=== PATIENT | female | born 1955 | race Caucasian/White ===

== ENCOUNTER 2025-01-24 13:58 | Outpatient (CLI) | payer MEDICARE, OTHER, SELFPAY ==
--- OUTSIDE RECORDS SUMMARY | 2024-11-28 08:30 | XMS_ITS | Encounter Summary ---
Author Organization [facility] Address [address] [place] [address] Care Team Providers Care Archives Director Name Role Phone Kia Ha MD Primary Care Provider [phone] Reason for Referral * Consultation (Routine) - Closed Specialty Diagnoses / Procedures Referred By Pili ricardo Referred To Contact Cardiology Diagnoses Palpitations PAC (premature atrial contraction) Procedures [place] OFFICE/OUTPATIENT NEW MODERATE MDM 45 MINUTES Jesus Nesbitt APRN [address] [place] [address] Phone: tel: fax: Vivian Humphrey MD [address] [facility] [address] [place] [address] Phone: tel: fax: Referral ID Status Reason Start Date Expiration Date V isits Requested Visits Authorized [id number] Closed Specialty Services Required 11/28/2024 02/27/2026 1 1 Scheduling Instructions Please schedule 3-4 weeks. * Diagnostic Imaging (Routine) - Closed Specialty Diagnoses / Procedures Referred By Pili ricardo Referred To Contact Diagnoses Palpitations PAC (premature atrial contraction) Shortness of breath Procedures Adult Transthoracic Echo Complete W/ Cont if Necessary Per Protocol Jesus Nesbitt APRN [address] [place] [address] Phone: tel: fax: Referral ID Status Reason Start Date Expiration Date Visits Re quested Visits Authorized [id number] Closed 11/28/2024 02/27/2026 1 1 Reason for Visit * Reason Comments Palpitations Monitor results Encounter Details Date Type Department Care Team (Late st Contact Info) Description 11/28/2024 8:30 AM EDT Office Visit [facility] CARDIOLOGY [address] [facility] [address] [place] [phone] Jesus Nesbitt APRN [address] [facility] [address] [place] [address] Palpitations (Primary Dx); PAC (premature atrial contraction); [...] 69 y.o. female with HTN presents to [facility] Heart and Valve Atrial Fibrillation/arrhythmia clinic for Palpitations (Monitor results). Since previous evaluation patient completed cardiac catheterization technologist with diagnostic time approximately 14 days. hospital monitor with no atrial fibrillation/flutter, AVB/pause, VT. Short [...] Previous evaluation: Patient was recently evaluated at [facility] emergency department for complaints of irregular heart rate, PVC on ambulatory ECG monitor. Emergency department work-up revealed normal troponin/BNP, CXR with no acute cardiopulmonary findings, and ECGs with no evidence of arrhythmia/acuteischemia. Patient was instructed to follow-up at [facility] heart and valve center for further [...] Media :23} 1. Palpitations -Recently evaluated at [facility] emergency department for complaints of irregular heart rate, PVC on ambulatory ECG monitor. Pronounced symptoms at time of ED evaluation after isolatedincreased alcohol intake. -hospital monitor with diagnostic time approximately 14 days. hospital monitor with no atrial fibrillation/flutter, AVB/pause, VT. Short [...] PACs and palpitations -Discussed AF monitoring with [facility] -Referral to cardiology for surveillance 2. Essential [...] questions, concerns, or worsening symptoms. Dictated Utilizing [employer] Dictation Please note that portions of this note were completed with a voice recognition program. Part of this note may be an electronic physician extender/translation of spoken language to printed text using the [employer] Dictation System. documented in this encounter Plan of Treatment Upcoming Encounters Date Type Department Care Team (Late st Contact Info) Description 02/23/2025 1:00 PM EDT Appointment [facility] [address] [place] [address] 01/09/2026 10:30 AM EDT Office Visit [facility] [address] [facility] [address] [place] [phone] Gianni Delgado III, MD [address] [facility] [address] [place] [address] Scheduled Referrals Name Type Priority Associated Diagnoses [...] breath documented in this encounter Care Teams Archives Director Relationship Specialty Start Date End Date Kia Ha MD [address] [place] [address] PCP - General 02/13/15 documented as of this encounter
--- OUTSIDE RECORDS SUMMARY | 2024-11-29 10:42 | XMS_ITS | Encounter Summary ---
Author Organization [facility] Address [address] [place] [address] Care Team Providers Care Attendant Sales Name Role Phone Kia Ha MD Primary Care Provider [phone] Reason for Referral * Diagnostic Imaging (Routine) - Closed Specialty Diagnoses / Procedures Referred By Contac t Referred To Contact Diagnoses Palpitations PAC (premature atrial contraction) Shortness of breath Procedures Adult Transthoracic Echo Complete W/ Cont if Necessary Per Protocol Jesus Nesbitt APRN [address] [place] [address] Phone: tel: fax: Referral ID Status Reason [...] Necessary Per Protocol Jesus Nesbitt APRN [address] [place] [id number] Phone: tel: fax: Referral ID Status Reason Start Date Expiration Date Visits Re quested Visits Authorized Closed 11/28/2024 02/27/2026 1 1 Encounter Details Date Type Department Care Team (Late st Contact Info) Description 11/29/2024 10:42 AM EDT - 11/29/2024 11:59 PM EDT Hospital Encounter [facility]VASIVE [facility] [place] [address] [place] [address] Jesus Nesbitt, MARGARITO [address] [place] [address] Palpitations; PAC (premature atrial contraction); [...] Info) Description 02/23/2025 1:00 PM EDT Appointment [facility] [address] [place] [address] 01/09/2026 10:30 AM EDT Office [facility] [address] [place] [address] Gianni Delgado III, MD [address] [place] [address] documented as of this encounter Procedures Procedure [...] breath documented in this encounter Care Teams Attendant Sales Relationship Specialty Start Date End Date Kia Ha MD [address] [place] [address] PCP - General 02/13/15 documented as of this encounter
--- OUTSIDE RECORDS SUMMARY | 2025-01-08 11:00 | XMS_ITS | Encounter Summary ---
Author Organization [facility] Address [address] [place] [address] Care Team Providers Care Human Performance Technologist Name Role Phone Kia Ha MD Primary Care Provider [phone] Reason for Visit * Reason Comments Establish Care Palpitations * Consultation (Routine) - Closed Specialty Diagnoses / Procedures Referred By Contac t Referred To Contact Cardiology Diagnoses Palpitations PAC (premature atrial contraction) Procedures [place] OFFICE/OUTPATIENT NEW MODERATE MDM 45 MINUTES Jesus Nesbitt, MARGARITO [address] [place] [address] Phone: tel: fax: Vivian Humphrey MD [address] [facility] [address] [place] [address] Phone: tel: fax: Referral ID Status Reason Start Date Expiration Date V isits Requested Visits Authorized [id number] Closed Specialty Services Required 11/28/2024 02/27/2026 1 1 Encounter Details Date Type Department Care Team (Late st Contact Info) Description 01/08/2025 11:00 AM EDT Office Visit [facility] [address] [place] [address] Gianni Delgado III, MD [address] [place] [address] Premature atrial complexes (Primary Dx) Social History Tobacco Use Types Packs/Day Years Used Date Smoking Tobacco: Never Passive Smoke Exposure: Never Smokeless Tobacco: Never Tobacco Cessation:Counseling Given: Not Answered Alcohol Use Standard Drinks/Week Comments Yes 2 (1 standard drink = 0.6 oz pur e alcohol) Sometimes wine Abuse Screen Answer Date Recorded Feels Unsafe [...] Sign Reading Time Taken Comments Blood Pressure 140/72 01/08/2025 10:55 AM EDT Pulse 58 01/08/2025 10:55 AM EDT Temperature - - Respiratory Rate - - Oxygen Saturation 97% 01/08/2025 10:55 AM EDT Inhaled Oxygen Concentration - - Weight 71.8 kg (158 lb 3.2 oz) 01/08/2025 10:55 AM EDT Height 163.8 cm (5' 4.5 ) 01/08/2025 10:55 AM ED T Body Mass Index 26.74 01/08/2025 10:55 AM EDT documented in this encounter Progress Notes * Gianni Delgado III, MD - 01/08/2025 11:00 AM EDT [facility] Cardiology Office visit Aris Reddy 1955 There is no work phone number on file. VISIT DATE: 01/08/2025 PCP: Kia Ha MD [address] [address] CC: Chief Complaint Patient presents with Establish Care Palpitations Previous cardiac studies and procedures: November 2024 TTE Left ventricular systolic function is normal. Calculated left ventricular EF = 62.8% Left ventricular ejection fraction appears to be 61 - 65%. Left ventricular diastolic function was normal. Estimated right ventricular systolic pressure from tricuspid regurgitation is normal (<35 mmHg).Calculated right ventricular systolic pressure from tricuspid regurgitation is 26 mmHg. 14-day Holter Frequent PACs with 10% burden Average heart rate 67 bpm Short episodes of SVT with the longest lasting 10 beats ASSESSMENT: Diagnosis Plan 1. Premature atrial complexes PLAN: Premature atrial contractions, short episodes of nonsustained atrial tachycardia: Continue regular exercise. Discussed avoidance of triggers. Will continue to trend arrhythmia via [employer] mobile device at home. Continue low-dose beta-blockade. Not recommending antiarrhythmic therapy at this time. Subjective Intermittent nocturnal palpitations after alcohol. She seems to be sensitive to the effects of alcohol, drinking in moderation, no more than 1-2 standard drinks in a sitting, approximately once per week. Exercising on a regular basis without difficulty. Blood pressures running less than 130/80 mmHg. No sustained palpitations. PHYSICAL EXAMINATION: Vitals: 01/08/25 1055 BP: 140/72 BP Location: Left arm Patient Position: Sitting Cuff Size: Adult Pulse: 58 SpO2: 97% Weight: 71.8 kg (158 lb 3.2 oz) Height: 163.8 cm (64.5 ) General Appearance: Alert, cooperative, no distress, appears stated age Lungs: Clear to auscultation bilaterally, respirations unlabored Chest Wall: No tenderness or deformity Heart: Regular rate and rhythm, S1 and S2 normal, no murmur, rub or gallop, normal carotid impulse bilaterally without bruit. Extremities: Extremities normal, atraumatic, no cyanosis or edema Pulses: 2+ and symmetric all extremities Skin: Skin color, texture, turgor normal, no rashes or lesions Diagnostic Data: Procedures No results found for: CHLPL , TRIG , HDL , LDLDIRECT Lab Results Component Value Date GLUCOSE 122 (H) 10/26/2024 BUN 13.6 10/26/2024 CREATININE 0.59 10/26/2024 NA 137 10/26/2024 K 4.0 10/26/2024 CL 102 10/26/2024 CO2 24.6 10/26/2024 No results found for: HGBA1C Lab Results Component Value Date WBC 6.81 10/26/2024 HGB 13.7 10/26/2024 HCT 41.7 10/26/2024 PLT 182 10/26/2024 Allergies Allergies Allergen Reactions Imipramine Rash Sulfa Antibiotics Rash Current Medications Current Outpatient Medications: amLODIPine (NORVASC) 5 MG tablet, Take 1 tablet by mouth Daily., Disp: , Rfl: Biotin 5000 MCG tablet, Take by mouth., Disp: , Rfl: Cholecalciferol (Vitamin D-3) 25 MCG (1000 UT) capsule, Take by mouth., Disp: , Rfl: Coenzyme Q10 (CoQ-10) 100 MG capsule, Take 1 capsule by mouth Daily., Disp: , Rfl: docusate sodium (COLACE) 100 MG capsule, Take 2 capsules by mouth every night at bedtime., Disp: , Rfl: lansoprazole (PREVACID) 15 MG capsule, Take 1 capsule by mouth Daily., Disp: , Rfl: Magnesium 200 MG tablet, Take 1 tablet by mouth Daily., Disp: , Rfl: Melatonin 10 MG capsule, Take 1 capsule by mouth every night at bedtime., Disp: , Rfl: metoprolol succinate XL (TOPROL-XL) 25 MG 24 hr tablet, Take 1 tablet by mouth Every Night., Disp: 90 tablet, Rfl: 1 rosuvastatin (CRESTOR) 40 MG tablet, Take 1 tablet by mouth every night at bedtime., Disp: , Rfl: traZODone (DESYREL) 50 MG tablet, Take 1 tablet by mouth Every Night. (Patient taking differently: Take 1 tablet by mouth As Needed for Sleep.), Disp: , Rfl: ROS ROS SOCIAL HX Social History Socioeconomic History Marital status: Tobacco Use Smoking status: Never Passive exposure: Never Smokeless tobacco: Never Vaping Use Vaping status: Never Used Substance and Sexual Activity Alcohol use: Yes Alcohol/week: 2.0 standard drinks of alcohol Types: 2 Drinks containing 0.5 oz of alcohol per week Comment: Sometimes wine Drug use: Never Sexual activity: Yes Partners: Male control/protection: None, Tubal ligation FAMILY HX Family History Problem Relation Age of Onset Cancer Mother PANCREATIC Broken bones Mother Arrhythmia Mother Atrial fibrillation Hyperlipidemia Mother Hypertension Mother Hyperlipidemia Father Hyperlipidemia Sister Breast cancer Maternal Aunt DX AGE 60'S Heart attack Paternal Grandmother Hyperlipidemia Sister Ovarian cancer Neg Hx Gianni Delgado III, MD, FAC documented in this encounter Plan of Treatment Upcoming Encounters Date Type Department Care Team (Late st Contact Info) Description 02/23/2025 1:00 PM EDT Appointment [facility] [address] [place] [address] 01/09/2026 10:30 AM EDT Office Visit [facility] [address] [place] [address] Gianni Delgado III, MD [address] [facility] [address] [facility] [address] [place] [address] Scheduled Referrals Name Type Priority Associated Diagnoses Order Schedule Ambulatory Referral to Cardiology for Arrythmia, Other; Frequent PACs. Outpatient Referral Routine Palpitations PAC (premature atrial contraction) Ordered: 11/28/2024 documented as of this encounter Visit Diagnoses Diagnosis Premature atrial complexes- Primary Supraventricular premature beats documented in this encounter Care Teams Human Performance Technologist Relationship Specialty Start Date End Date Kia Ha MD [address] [facility] [address] [place] [address] PCP - General 02/13/15 documented as of this encounter
--- OUTSIDE RECORDS SUMMARY | 2025-01-17 12:31 | XMS_ITS | Encounter Summary ---
Author Organization [facility] Address [address] [place] [address] Care Team Providers Care Senior Financial Reporting Accountant Name Role Phone Kia Ha MD Primary Care Provider [phone] Reason for Referral * Cardiac Stress Testing (Routine) - Closed Specialty Diagnoses / Procedures Referred By Pili ricardo Referred To Contact Diagnoses Precordial pain Procedures Treadmill Stress Test Gianni Delgado III, MD [address] [place] [address] Phone: tel: fax: Referral ID Status Reason Start Date Expiration Date Visits Re quested Visits Authorized [id number] Closed 01/10/2025 04/11/2026 1 1 Reason for Visit * Cardiac Stress Testing (Routine) - Closed Specialty Diagnoses / Procedures Referred By Pili ricardo Referred To Contact Diagnoses Precordial pain Procedures Treadmill Stress Test Gianni Delgado III, MD [address] [place] [address] Phone: tel: fax: Referral ID Status Reason Start Date Expiration Date Visits Re quested Visits Authorized Closed 01/10/2025 04/11/2026 1 1 Encounter Details Date Type Department Care Team (Late st Contact Info) Description 01/17/2025 12:31 PM EDT - 01/17/2025 11:59 PM EDT Hospital Encounter [facility] C[facility]ULAR LAB [address] [place] [address] Gianni Delgado III, MD [address] [place] [address] Precordial pain Discharge Disposition: Home or Self Care Social [...] Physical Signs of Abuse Present no 10/26/2024 PHQ-2 Answer Date Recorded Patient Health Questionnaire-9 Score 0 01/16/2025 Comments No Sex and Gender Information Value Date Recorded Sex Assigned at Not on file Legal Sex Female 10:55 AM EDT Gender Identity Not on file Sexual Orientation Not on file documented as of this encounter Last Filed Vital Signs Vital Sign Reading Time Taken Comments Blood Pressure 152/90 01/17/2025 1:10 PM EDT Pulse 81 01/17/2025 1:10 PM EDT Temperature - - Respiratory Rate - - Oxygen Saturation - - Inhaled Oxygen Concentration - - Weight 71.8 kg (158 lb 4.6 oz) 01/17/2025 1:10 P M EDT Height 163.8 cm (5' 4.49 ) 01/17/2025 1:10 PM ED T Body Mass Index 26.76 01/17/2025 1:10 PM EDT documented in this encounter Medications at [...] capsules by mouth every night at bedtime. lansoprazole (PREVACID) 15 MG capsule Take 1 capsule by mouth Daily. Magnesium 200 MG tablet Take 1 tablet by mouth Daily. Melatonin 10 MG capsule Take 1 capsule by mouth every night at bedtime. metoprolol succinate XL (TOPROL-XL) 25 MG 24 hr tabletIndications :Palpitations,PAC (premature atrial contraction) Take 1 tablet by mouth Every Night. 90 tablet 1 11/28/2024 traZODone (DESYREL) 50 MG tablet Take 1 tablet by mouth Every Night. 08/04/2024 documented as of this encounter Plan of Treatment Upcoming Encounters Date Type Department Care Team (Late st Contact Info) Description 02/23/2025 1:00 PM EDT Appointment [facility] [address] [place] [address] 01/09/2026 10:30 AM EDT Office Visit [facility] [address] [facility] [address] [place] [address] Gianni Delgado III, MD [address] [facility] [address] [place] [address] documented as of this encounter Procedures Procedure Name Priority Date/Time Associated Diagnosis Comments STRESS TEST ONLY, EXERCISE Routine 01/17/2025 1:22 PM EDT Precordial pain documented in this encounter Results * STRESS TEST ONLY, EXERCISE (01/17/2025 1:22 PM EDT) Target HR (85%) 130 bpm Max. Pred. HR (100%) 153 bpm BH CV STRESS PROTOCOL 1 Burt Stage 1 1.0 HR Stage 1 133 BP Stage 1 176/86 O2 Stage 1 100 Duration Min Stage 1 3 Duration Sec Stage 1 0 Grade Stage 1 10 Speed Stage 1 1.7 BH CV STRESS METS STAGE 1 5.0 Stage 2 2.0 HR Stage 2 131 BP Stage 2 188/86 O2 Stage 2 98 Duration Min Stage 2 3 Duration Sec Stage 2 0 Grade Stage 2 12 Speed Stage 2 2.5 BH CV STRESS METS STAGE 2 7.5 Stage 3 3.0 HR Stage 3 139 O2 Stage 3 99 Duration Min Stage 3 1 Duration Sec Stage 3 11 Grade Stage 3 14 Speed Stage 3 3.4 BH CV STRESS METS STAGE 3 10.0 Baseline HR 81 bpm Baseline BP 152/90 mmHg O2 sat rest 100 % Peak HR 141 bpm Peak BP 196/90 mmHg O2 sat peak 99 % Recovery HR 82 bpm Recovery BP 144/84 mmHg Recovery O2 99 % Percent Max Pred HR 92.16 % Exercise duration (min) 7 min Exercise duration (sec) 11 sec Estimated workload 8.8 METS Percent Target HR 108 % Anatomical Region Laterality Modality Other Narrative 01/17/2025 2:00 PM EDT Patient denied any chest discomfort/pain, or any other symptoms during exercise. Expected exercise duration 5:55, actual 7:11. No ECG evidence of myocardial ischemia. Findings consistent with a normal ECG stress test. Stress Findings No ECG evidence of myocardial ischemia. Findings consistent with a normal ECG stress test. Rest ECG Baseline ECG of normal sinus rhythm noted at rest. PACs noted. There was no ST segment deviation noted. Stress ECG Stress ECG rhythm of sinus tachycardia noted. There was no ST segment deviation noted during stress. Arrhythmias during stress: occasional PACs, occasional PVCs. Stress ECG was interpretable and is consistent with a normal stress ECG. Stress Description A stress test was performed following the Burt protocol. The patient achieved the target heart rate. The patient requested the test to be stopped because the patient experienced fatigue. The clinician observed no symptoms during the stress test. The patient experienced no angina during the stress test. The Felipe Treadmill Score of 5.7 is consistent with a Low risk for ischemic heart disease. Blood pressure demonstrated a normal response to stress. Heart rate demonstrated a normal response to stress. Overall, the patient's exercise capacity was normal. Recovery ECG During recovery, the patient complained of no significant symptoms following stress. Sinus rhythm was noted during recovery. Arrhythmias during recovery: occasional PAC's. Test Chemical Worker ECG Hope Gianni Delgado III, MD CV STRESS ORDERABLES Final Result documented in this encounter Visit Diagnoses Diagnosis Precordial pain documented in this encounter Care Teams Senior Financial Reporting Accountant Relationship Specialty Start Date End Date Kia Ha MD [address] [place] [address] PCP - General 02/13/15 documented as of this encounter
--- OUTSIDE RECORDS SUMMARY | 2025-01-24 14:02 | XMS_ITS | Encounter Summary ---
Author Organization [facility] Address [address] [place] [address] Care Team Providers Care Arboreal Scientist Name Role Phone Kia Ha MD Primary Care Provider Encounter Details Date Type Department Care Team (Late st Contact Info) Description 01/17/2025 Results Follow-Up [facility] CARDIOLOGY [address] [facility] [address] [place] [address] Gianni Delgado III, MD [address] [facility] [address] [place] [address] Social History Tobacco Use Types Packs/Day Years [...] on file documented as of this encounter Plan of Treatment Upcoming Encounters Date Type Department Care Team (Late st Contact Info) Description 02/23/2025 1:00 PM EDT Appointment [facility] [address] [place] [address] 01/09/2026 10:30 AM EDT Office Visit [facility] [address] [facility] [address] [place] [address] Gianni Delgado III, MD [address] [facility] [address] [place] [address] documented as of this encounter Visit Diagnoses Not on filedocumented in this encounter Care Teams Arboreal Scientist Relationship Specialty Start Date End Date Kia Ha MD [address] [facility] [address] [place] [address] PCP - General 02/13/15 documented as of this encounter
--- OUTSIDE RECORDS SUMMARY | 2025-01-24 14:02 | XMS_ITS | Encounter Summary ---
Author Organization [facility] Address [address] [place] [address] Care Team Providers Care Nurse Companion Name Role Phone Kia Ha MD Primary Care Provider [phone] Encounter Details Date Type Department Care Team (Latest Contact Info) Description 01/08/2025 Travel Social History Tobacco Use Types Packs/Day Years [...] Info) Description 02/23/2025 1:00 PM EDT Appointment [facility] [address] [place] [address] 01/09/2026 10:30 AM EDT Office Visit [facility] C[facility] [address] [place] [address] Gianni Delgado III, MD [address] [place] [address] documented as of this encounter Visit Diagnoses Not on filedocumented in this encounter Care Teams Nurse Companion Relationship Specialty Start Date End Date Kia Ha MD [address] [facility] [address] [place] [address] PCP - General 02/13/15 documented as of this encounter
--- OUTSIDE RECORDS SUMMARY | 2025-01-24 14:02 | XMS_ITS | Encounter Summary ---
Author Organization [facility] Address [address] [place] [address] Care Team Providers Care Stoker Installation Mechanic Name Role Phone Kia Ha MD Primary Care Provider [phone] Reason for Referral * Consultation (Routine) - Pending Review Specialty Diagnoses / Procedures Referred By Contact Referred To Contact Gastroenterology Diagnoses Dyspepsia Procedures OK OFFICE/OUTPATIENT NEW MODERATE MDM 45 MINUTES Gianni Delgado III, MD [address] [place] [address] Phone: tel: fax: Roe Dunham MD [address] [facility] [address] [place] [address] Phone: tel: fax: Referral ID Status Reason Start Date Expiration Date Visits Requested Visits Authorized Pending Review Specialty Services Required 01/10/2025 04/11/2026 1 1 * Cardiac Stress Testing (Routine) - Closed Specialty Diagnoses / Procedures Referred By Contac t Referred To Contact Diagnoses Precordial pain Procedures Treadmill Stress Test Gianni Delgado III, MD [address] [place] [address] Phone: tel: fax: Referral ID Status Reason Start Date Expiration Date Visits Re quested Visits Authorized Closed 01/10/2025 04/11/2026 1 1 Encounter Details Date Type Department Care Team (Late st Contact Info) Description 01/10/2025 Telephone [facility] [address] [place] [address] Gianni Delgado III, MD [address] [place] [address] Social History Tobacco Use Types Packs/Day Years [...] on file documented as of this encounter Miscellaneous Notes * Telephone Encounter - Julissa Gonzalez RN - 01/10/2025 8:19 AM EDT Per Exercise treadmill test. Diagnosis precordial pain. Consult GI, dyspepsia. Message sent via [employer]. documented in this encounter Plan of Treatment Upcoming Encounters Date Type Department Care Team (Late st Contact Info) Description 02/23/2025 1:00 PM EDT Appointment [facility] [address] [place] [address] 01/09/2026 10:30 AM EDT Office Visit [facility] [address] [place] [address] Gianni Delgado III, MD [address] [place] [address] Scheduled Referrals Name Type Priority Associated Diagnoses Order Schedule Ambulatory Referral to Gastroenterology Outpatient Referral Routine Dyspepsia Ordered: 01/10/2025 documented as of this encounter Results * STRESS TEST ONLY, [...] recovery. Arrhythmias during recovery: occasional PAC's. Test [employer] [facility] [employer] us Gianni Delgado III, MD CV STRESS ORDERABLES Final Result documented in this encounter Visit Diagnoses Diagnosis Precordial pain- Primary Dyspepsia Dyspepsia and other specified disorders of function of stomach Precordial pain documented in this encounter Care Teams Stoker Installation Mechanic Relationship Specialty Start Date End Date Kia Ha MD [address] [place] [address] PCP - General 02/13/15 documented as of this encounter
--- OUTSIDE RECORDS SUMMARY | 2025-01-24 14:02 | XMS_ITS | Encounter Summary ---
Author Organization [facility] Address [address] [place] [address] Care Team Providers Care Industrial Analyst Name Role Phone Kia Ha MD Primary Care Provider [phone] Encounter Details Date Type Department Care Team (Latest Contact Info) Description 01/17/2025 Travel Social History Tobacco Use Types Packs/Day [...] Info) Description 02/23/2025 1:00 PM EDT Appointment [facility] [address] [place] [address] 01/09/2026 10:30 AM EDT Office Visit [facility] [address] [place] [phone] Gianni Delgado III, MD [address] [facility] [address] [place] [phone] documented as of this encounter Visit Diagnoses Not on filedocumented in this encounter Care Teams Industrial Analyst Relationship Specialty Start Date End Date Kia Ha MD [address] [facility] [address] [place] [address] PCP - General 02/13/15 documented as of this encounter
--- OUTSIDE RECORDS SUMMARY | 2025-01-24 14:02 | XMS_ITS | Encounter Summary ---
Author Organization [facility] Address [address] [place] [address] Care Team Providers Care Scrubber Operator Name Role Phone Kia aH MD Primary Care Provider [phone] Reason for Visit * Auth/Cert Specialty Diagnoses / Procedures Referred By Pili t Referred To Contact Procedures OPEN REDUCTION INTERNAL FIXATION HUMERUS PROXIMAL Referral ID Status Reason Start Date Expiration Date Visits Re quested Visits Authorized [id number] Encounter Details Date Type Department Care Team (Late st Contact Info) Description 08/15/2024 Hospital Encounter [facility] OR [address] [place] [address] Davey Moran Jr., MD [address] [facility] [address] [place] [address] Social History Tobacco Use Types Packs/Day Years [...] on file documented as of this encounter Functional Status * Over the past 2 weeks, how often have you been bothered by any of the following problems? Question Answer Date of Assessment Author Patient Health Questionnaire-2 Score 0 12/29 11:47 AM EDT Mychart, Generic * Little interest or pleasure in doing things Answer Date of Assessment Author Not at all 01/16/2025 11:47 AM EDT Mychart, Generic * Feeling down, depressed, or hopeless Answer Date of Assessment Author Not at all 01/16/2025 11:47 AM EDT Mychart, Generic * Question Answer Date of Assessment Author Patient Health Questionnaire-9 Score 0 12/29 11:47 AM EDT Mychart, Generic * Trouble falling or staying asleep, or sleeping too much Answer Date of Assessment Author Not at all 01/16/2025 11:47 AM EDT Mychart, Generic * Feeling tired or having little energy Answer Date of Assessment Author Not at all 01/16/2025 11:47 AM EDT Mychart, Generic * Poor appetite or overeating Answer Date of Assessment Author Not at all 01/16/2025 11:47 AM EDT Mychart, Generic * Feeling bad about yourself - or that you are a failure or have let yourself or your family down Answer Date of Assessment Author Not at all 01/16/2025 11:47 AM EDT Mychart, Generic * Trouble concentrating on things, such as reading the newspaper or watching television Answer Date of Assessment Author Not at all 01/16/2025 11:47 AM EDT Mychart, Generic * Moving or speaking so slowly that other people could have noticed? Or the opposite - being so fidgety or restless that you have been moving around a lot more than usual. Answer Date of Assessment Author Not at all 01/16/2025 11:47 AM EDT Mychart, Generic * Thoughts that you would be better off or hurting yourself in some way Answer Date of Assessment Author Not at all 01/16/2025 11:47 AM EDT Mychart, Generic * Calculated C-SSRS Risk Score (Lifetime/Recent) Answer Date of Assessment Author No Risk Indicated 10/26/2024 5:05 AM EDT Margarito Walters RN * [place] Suicide Severity Rating Scale (Screener/Recent Self-Report) Question Answer Date of Assessment Author 1. Wish to be (Past 1 Month) No 025 5:05 AM EDT Margarito Walters RN 2. Non-Specific Active Suici maria Thoughts (Past 1 Month) No 10/26/2024 5:05 AM EDT Pauline Walters RN 6. Suicidal Behavior (Lifetime) No 5:05 AM EDT Margarito Walters RN documented as of this encounter Plan of Treatment Upcoming Encounters Date Type Department Care Team (Late st Contact Info) Description 02/23/2025 1:00 PM EDT Appointment [facility] [address] [place] [address] 01/09/2026 10:30 AM EDT Office Visit [facility] [address] [facility] [address] [place] [address] Gianni Delgado III, MD [address] [facility] [address] [place] [address] documented as of this encounter Visit Diagnoses Not on filedocumented in this encounter Care Teams Scrubber Operator Relationship Specialty Start Date End Date Kia Ha MD [address] [facility] [address] [place] [address] PCP - General 02/13/15 documented as of this encounter
--- OUTSIDE RECORDS SUMMARY | 2025-01-24 14:02 | XMS_ITS | Encounter Summary ---
Author Organization [facility] Address [address] [place] [address] Care Team Providers Care Hvac Sales Engineer Name Role Phone Kia Ha MD Primary Care Provider [phone] Encounter Details Date Type Department Care Team (Late st Contact Info) Description 11/22/2024 Results Follow-Up [facility] [address] [facility] [address] [place] [address] Jesus Nesbitt APRN [address] [facility] [address] [place] [phone] Social History Tobacco Use Types Packs/Day Years [...] Info) Description 02/23/2025 1:00 PM EDT Appointment [facility] [address] [place] [address] 01/09/2026 10:30 AM EDT Office Visit [facility] [address] [facility] [address] [place] [id number] Gianni Delgado III, MD [address] [facility] [address] [place] [phone] documented as of this encounter Visit Diagnoses Not on filedocumented in this encounter Care Teams Hvac Sales Engineer Relationship Specialty Start Date End Date Kia Ha MD [address] [facility] [address] [place], [place] [id number] PCP - General 02/13/15 documented as of this encounter
--- OUTSIDE RECORDS SUMMARY | 2025-01-24 14:02 | XMS_ITS | Encounter Summary ---
Author Organization [facility] Address [address] [place] [address] Care Team Providers Care Auto Glass Worker Name Role Phone Kia Ha MD Primary Care Provider [phone] Reason for Visit * Reason Onset Date Comments Medication Reconciliation 01/05/2025 Encounter Details Date Type Department Care Team (Late st Contact Info) Description 01/05/2025 Telephone [facility] [address] [facility] [address] [place] [address] Gianni Delgado III, MD [address] [facility] [address] [place] [address] Medication Reconciliation Social History Tobacco Use Types Packs/Day Years [...] on file documented as of this encounter Progress Notes * AmadoSuzie Cartagena CMA - 01/05/2025 1:12 PM EDTAddended by: SUZIE LIEBERMAN on: 01/05/2025 01:12 PM Modules accepted: Orders documented in this encounter Miscellaneous Notes * Telephone Encounter - Suzie Raza CMA - 01/05/2025 1:09 PM EDT Medication reconciliation completed with patient. * Telephone Encounter - Suzie Raza CMA - 01/05/2025 11:24 AM EDT LVM requesting call back for medication reconciliation. documented in this encounter Plan of Treatment Upcoming Encounters Date Type Department Care Team (Late st Contact Info) Description 02/23/2025 1:00 PM EDT Appointment [address] [address] 01/09/2026 10:30 AM EDT Office Visit [facility] [address] [facility] [address] [place] [address] Gianni Delgado III, MD [address] [place] [address] documented as of this encounter Visit Diagnoses Not on filedocumented in this encounter Care Teams Auto Glass Worker Relationship Specialty Start Date End Date Kia Ha MD [address] [facility] [address] [place] [address] PCP - General 02/13/15 documented as of this encounter
--- OUTSIDE RECORDS SUMMARY | 2025-01-24 14:02 | XMS_ITS | Clinical Summary ---
Author Organization [facility] Address [address] [place] [address] Care Team Providers Care Clinical Auditor Name Role Phone Kia Ha MD Primary Care Provider [phone] Allergies Active Allergy Reactions Criticality Noted Date Comments Imipramine Rash Low 07/12/2013 Sulfa Antibiotics Rash Low 12/08/2015 Medications rosuvastatin (CRESTOR) 40 MG tablet Take 1 tablet by mouth every night at bedtime. 3 Active Cholecalciferol (Vitamin D-3) 25 MCG (1000 UT) capsule Take by mouth. 4 Active Biotin 5000 MCG tablet Take by mouth. 4 Active amLODIPine (NORVASC) 5 MG tablet Take 1 tablet by mouth Daily. 4 Active traZODone (DESYREL) 50 MG tablet Take 1 tablet by mouth Every Night. 5 Active Magnesium 200 MG tablet Take 1 tablet by mouth Daily. Active docusate sodium (COLACE) 100 MG capsule Take 2 capsules by mouth every night at bedtime. Active Coenzyme Q10 (CoQ-10) 100 MG capsule Take 1 capsule by mouth Daily. Active Melatonin 10 MG capsule Take 1 capsule by mouth every night at bedtime. Active metoprolol succinate XL (TOPROL-XL) 25 MG 24 hr tabletIndicatio ns:Palpitations ,PAC (premature atrial contraction) Take 1 tablet by mouth Every Night. 90 tablet 1 5 Active lansoprazole (PREVACID) 15 MG capsule Take 1 capsule by mouth Daily. Active ascorbic acid (VITAMIN C) 1000 MG tablet Take 1 tablet by mouth Daily. 01/09/20 25 Discontinue d(Historica l Med - Therapy completed) Active Problems Problem Noted Date Diagnosed Date Premature atrial complexes 01/08/2025 Encounters Date Type Department Care Team Description 01/17/2025 12:31 PM EDT - 01/17/2025 11:59 PM EDT Hospital Encounter [facility] [address] [facility] 3rd [place] [address] Gianni Delgado III, MD Precordial pain Discharge Disposition: Home or Self Care 01/17/2025 Results Follow-Up [facility] [address] [facility] [address] [place] [address] Gianni Delgado III, MD 01/17/2025 Travel 01/10/[address] [facility] [address] [facility] [address] [place] [address] Gianni Delgado III, MD 01/08/2025 11:00 AM EDT Office Visit [facility] [address] [facility] [address] [place] [address] Gianni Delgado III, MD Premature atrial complexes (Primary Dx) 01/08/2025 Travel 01/05/[address] [facility] [address] [facility] [address] [place] [address] Gianni Delgado III, MD Medication Reconciliation 11/29/2024 10:42 AM EDT - 11/29/2024 11:59 PM EDT Hospital Encounter [facility] NONINVASIVE LAB [place] [address] [facility] [address] [place] [phone] Jesus Nesbitt APRN Palpitations; PAC (premature atrial contraction); Shortness of breath Discharge Disposition: Home or Self Care 11/29/2024 Results Follow-Up [facility] [address] [facility] [address] [address] [place] [phone] Jesus Nesbitt APRN 11/28/2024 8:30 AM EDT Office [facility] [address] [facility] [address] [place] [address] Jesus Nesbitt APRN Palpitations (Primary Dx); PAC (premature atrial contraction); Shortness of breath 11/28/2024 Travel 11/22/2024 Results Follow-Up [facility] [address] [facility] [address] [place] [address] Jesus Nesbitt APRN 10/30/2024 10:26 AM EDT - 10/30/2024 11:59 PM EDT Hospital Encounter [facility] [address] [facility] [address] [place] [address] Palpitations Discharge Disposition: Home or Self Care 10/30/2024 9:00 AM EDT Office Visit [facility] [address] [facility] [address] [place] [address] Jesus Nesbitt APRN Palpitations (Primary Dx); Essential hypertension 10/30/2024 Travel 10/26/2024 5:06 AM EDT - 10/26/2024 7:15 AM EDT Emergency [facility] EMERGENC[facility] DE[facility] [address] [place] [address] Los Mazariegos MD Palpitations (Primary Dx) Discharge Disposition: Home or Self Care 10/26/2024 Travel from Last 3 Months Immunizations Immunization Administration Dates Next Due COVID-19 (PFIZER) Purple Cap Monovalent 06/25/19 21,06/04/2020 Family History Medical History Relation Name Comments Hyperlipidemia Father Father Breast cancer Maternal Aunt DX AGE 60'S Arrhythmia Mother Atrial fibrilla tion Broken bones Mother Cancer Mother PANCREATIC Hyperlipidemia Mother Hypertension Mother Heart attack Paternal Grandmother Grandmother Hyperlipidemia Sister 1 Sister Hyperlipidemia Sister 2 Destiny Ovarian cancer Neg Hx Relation Name Status Comments Father Father Alive Maternal Aunt Mother Paternal Grandmother Grandmother Alive Sister 1 Sister Alive Sister 2 Destiny Alive Social History Tobacco Use Types Packs/Day Years [...] on file Sexual Orientation Not on file Last Filed Vital Signs Vital Sign Reading Time Taken Comments Blood Pressure 152/90 01/17/2025 1:10 PM EDT Pulse 81 01/17/2025 1:10 PM EDT Temperature 36.5 C (97.7 F) 10/26/2024 5:05 AM EDT Respiratory Rate 18 11/28/2024 8:43 AM EDT Oxygen Saturation 97% 01/08/2025 10:55 AM EDT Inhaled Oxygen Concentration - - Weight 71.8 kg (158 lb 4.6 oz) 01/17/2025 1:10 P M EDT Height 163.8 cm (5' 4.49 ) 01/17/2025 1:10 PM ED T Body Mass Index 26.76 01/17/2025 1:10 PM EDT Plan of Treatment Upcoming Encounters Date Type Department Care Team (Late st Contact Info) Description 02/23/2025 1:00 PM EDT Appointment [facility] [address] [place] [address] 01/09/2026 10:30 AM EDT Office Visit [facility] [address] [place] [address] Gianni Delgado III, MD [address] [place] [address] Health Maintenance Due Date Last Done Comments COLOGUARD 2002 COLON CANCER SCREENING 5 YEA R SIGMOIDOSCOPY [address] COLONOGRAPHY 2002 FECAL OCCULT BLOOD TEST 2002 FIT Testing (1 year) 2002 ZOSTER VACCINE (1 of 2) 11/02/2007 DXA SCAN 05/18/2019 05/18/2017 ANNUAL WELLNESS VISIT 11/09/2022 HEPATITIS C SCREENING 11/09/2022 COLONOSCOPY 01/04/2024 01/03/2014 COLORECTAL CANCER SCREENING 01/04/2024 COVID-19 Vaccine (2023-2 5 season) 2024 08/27/2023, 05/09/2022, 03/28/2021, Additional history exists INFLUENZA VACCINE 02/28/2025 03/03/2024, , 03/27/2022, Additional history exists MAMMOGRAM 10/17/2025 10/18/2023, 05/0 08/2022, 07/22/2021, Additional history exists TDAP/TD VACCINES (2 - Td or Tdap) 07/10/2029 020 Pneumococcal Vaccine 50+ Completed 02/24/2023 Procedures Procedure Name Priority Date/Time Associated Diagnosis Comments STRESS TEST ONLY, EXERCISE Routine 01/17/2025 1:22 PM EDT Precordial pain ECHO COMPLETE W/ DOPPLER AND COLOR FLOW Routine 11/29/2024 11:45 AM EDT Palpitations PAC (premature atrial contraction) Shortness of breath HOLTER MONITOR >7DAYS UP TO 15 DAYS ([id number]) Routine 10/30/2024 10:33 AM EDT Palpitations HIGH SENSITIVITIY TROPONIN T 1HR STAT 10/26/2024 6:21 AM EDT ECG 12-LEAD STAT 10/26/2024 6:07 AM EDT XR CHEST 1 VW STAT 10/26/2024 5:25 AM EDT LIGHT BLUE TOP STAT 10/26/2024 5:17 AM EDT SUAZO TOP STAT 10/26/2024 5:17 AM EDT GOLD TOP - SST STAT 10/26/2024 5:17 AM EDT LAVENDER TOP STAT 10/26/2024 5:17 AM EDT DK GREEN TOP STAT 10/26/2024 5:17 AM EDT CBC AND DIFFERENTIAL STAT 10/26/2024 5:17 AM EDT MAGNESIUM STAT 10/26/2024 5:17 AM EDT TSH RFX ON ABNORMAL TO FREE T4 STAT 10/26/2024 5:17 AM EDT CBC WITH AUTO DIFFERENTIAL STAT 10/26/2024 5:17 AM EDT B-TYPE NATRIURETIC PEPTIDE STAT 10/26/2024 5:17 AM EDT LIPASE STAT 10/26/2024 5:17 AM EDT COMPREHENSIVE METABOLIC PANEL STAT 10/26/2024 5:17 AM EDT TROPONIN STAT 10/26/2024 5:17 AM EDT RAINBOW DRAW STAT 10/26/2024 5:17 AM EDT ECG 12-LEAD STAT 10/26/2024 5:05 AM EDT MAMMO SCREENING DIGITAL TOMOSYNTHESIS BILATERAL W CAD Routine 10/18/2023 11:32 AM EDT Visit for screening mammogram from Last 3 Months or Most Recently Relevant to Health Maintenance Results * STRESS TEST ONLY, EXERCISE (01/17/2025 [...] recovery. Arrhythmias during recovery: occasional PAC's. Test Intelligence Senior Sergeant ECG Cune[place] Gianni Delgado III, MD CV STRESS ORDERABLES Final Result * ECHO COMPLETE W/ DOPPLER AND COLOR [...] APRN CV ECHO ORDERABLES Final R esult * HOLTER MONITOR >7DAYS UP TO 15 DAYS ([id number]) (10/30/2024 10:33 AM EDT) Anatomical Region Laterality Modality Other Narrative 11/21/2024 9:22 AM EDT Frequent PACs with 10% burden Average heart rate 67 bpm Short episodes of SVT with the longest lasting 10 beats Jesus Nesbitt APRN CV CARDIAC SERVICES ORDERA BLES Final Result * High Sensitivity Troponin T 1Hr (10/26/2024 6:21 AM EDT) HS Troponin T <6 <14 ng/L 10/26/2024 6:42 AM EDT [facility] Troponin T Numeric Delta 10/26/2024 6:42 AM EDT [facility] Comment:Unable to calculate. Blood Line / Unknown 10/26/2024 6: 21 AM EDT 10/26/2024 6:24 AM EDT Narrative [facility] - 10/26/2024 6:42 AM EDT High Sensitive Troponin T Reference Range: <14.0 ng/L- Negative Female for AMI <22.0 ng/L- Negative Male for AMI >=14 - Abnormal Female indicating possible myocardial injury. >=22 - Abnormal Male indicating possible myocardial injury. Clinicians would have to utilize clinical acumen, EKG, Troponin, and serial changes to determine if it is an Acute Myocardial Infarction or myocardial injury due to an underlying chronic condition. Los Mazariegos MD LAB BLOOD ORDERABLES Final Result [facility]
[address] [place] [address], [place] * ECG 12 Lead Chest Pain (10/26/2024 6:07 AM EDT) Only the most recent of2 resultswithin the time period is included. QT Interval 356 ms ECG QTC Interval 395 ms ECG 10/26/2024 6:07 AM EDT 11/07/2024 6:01 PM EDT Narrative ECG - 11/07/2024 6:01 PM EDT Test Reason : Chest Pain Blood Pressure : */* mmHG Vent. Rate : 74 BPM Atrial Rate : 74 BPM P-R Int : 172 ms QRS Dur : 90 ms QT Int : 356 ms P-R-T Axes : 44 -15 64 degrees QTcB Int : 395 ms Normal sinus rhythm with sinus arrhythmia Moderate voltage criteria for LVH, may be normal variant ( R in aVL , Wilbert product ) Borderline ECG When compared with ECG of 26-Oct-2024 05:05, (Unconfirmed) premature ventricular complexes are no longer present Confirmed by Los Mazariegos ([id number]) on 11/07/2024 6:01:49 PM Referred By: Confirmed By: Los Mazariegos Procedure Note Los Mazariegos MD - 11/07/2024 Test Reason : Chest Pain Blood Pressure : */* mmHG Vent. Rate : 74 BPM Atrial Rate : 74 BPM P-R Int : 172 ms QRS Dur : 90 ms QT Int : 356 ms P-R-T Axes : 44 -15 64 degrees QTcB Int : 395 ms Normal sinus rhythm with sinus arrhythmia Moderate voltage criteria for LVH, may be normal variant ( R in aVL , Wilbert product ) Borderline ECG When compared with ECG of 26-Oct-2024 05:05, (Unconfirmed) premature ventricular complexes are no longer present Confirmed by Los Mazariegos ([id number]) on 11/07/2024 6:01:49 PM Referred By: Confirmed By: Los Mazariegos Los Mazariegos MD ECG ORDERABLES Final Resul t BH ECG * XR Chest 1 View (10/26/2024 5:25 AM EDT) Anatomical Region Laterality Modality Body N/A Radiographic Consuelo ging 10/26/2024 5:29 AM EDT Impressions 10/26/2024 5:30 AM EDT Impression: No acute cardiopulmonary process. Electronically Signed: Daja Salazar MD 10/26/2024 5:30 AM EDT Workstation ID: [id number] Narrative 10/26/2024 5:30 AM EDT XR CHEST 1 VW Date of Exam: 10/26/2024 5:18 AM EDT Indication: Chest Pain Triage Protocol Comparison: 08/04/2024. Findings: There are no airspace consolidations. No pleural fluid. No pneumothorax. The pulmonary vasculature appears within normal limits. The cardiac and mediastinal silhouette appear unremarkable. No acute osseous abnormality identified. Procedure Note Daja Salazar MD - 10/26/2024 XR CHEST 1 VW Date of Exam: 10/26/2024 5:18 AM EDT Indication: Chest Pain Triage Protocol Comparison: 08/04/2024. Findings: There are no airspace consolidations. No pleural fluid. No pneumothorax.The pulmonary vasculature appears within normal limits. The cardiac andmediastinal silhouette appear unremarkable. No acute osseous abnormalityidentified. IMPRESSION: Impression: No acute cardiopulmonary process. Electronically Signed: Daja Salazar MD 10/26/2024 5:30 AM EDT Workstation ID: [id number] Los Mazariegos MD IMG DIAGNOSTIC IMAGING ORDE RABMANE Final Result * Suazo Top (10/26/2024 5:17 AM EDT) Extra Tube Hold for add-ons. 10/26/2024 5:30 AM EDT [facility] Comment:Auto resulted. Blood Line / Unknown 10/26/2024 5: 17 AM EDT 10/26/2024 5:19 AM EDT Los Mazariegos MD LAB BLOOD ORDER ONLY Final Result Performing Organization Address City/[facility]/ZIP Co de Phone Number [facility]
[address] [facility] [address] [place] [address], [place] * TSH Rfx On Abnormal To Free T4 (10/26/2024 5:17 AM EDT) TSH 3.410 0.270 - 4.200 uIU/mL 10/26/2024 5:48 AM EDT [facility] Blood Line / Unknown 10/26/2024 5: 17 AM EDT 10/26/2024 5:19 AM EDT Los Mazariegos MD LAB BLOOD ORDERABLES Final Result Performing Organization Address City/[facility]/ZIP Co de Phone Number [facility]
[address] [place] [address], [place] * Gold Top - SST (10/26/2024 5:17 AM EDT) Extra Tube Hold for add-ons. 10/26/2024 5:30 AM EDT [facility] Comment:Auto resulted. Blood Line / Unknown 10/26/2024 5: 17 AM EDT 10/26/2024 5:19 AM EDT Los Mazariegos MD LAB BLOOD ORDER ONLY Final Result [facility]
[address] [facility] [address] [place] [address], [place] * Green Top (Gel) (10/26/2024 5:17 AM EDT) Extra Tube Hold for add-ons. 10/26/2024 5:30 AM EDT [facility] Comment:Auto resulted. Blood Line / Unknown 10/26/2024 5: 17 AM EDT 10/26/2024 5:19 AM EDT us Los Mazariegos MD LAB BLOOD ORDER ONLY Final Result [facility]
[address] [place] [address], [place] * CBC Auto Differential (10/26/2024 5:17 AM EDT) WBC 6.81 3.40 - 10.80 10*3/mm3 10/26/2024 5:22 AM EDT [facility] RBC 4.50 3.77 - 5.28 10*6/mm3 10/26/2024 5:22 AM EDT [facility] Hemoglobin 13.7 12.0 - 15.9 g/dL 10/26/2024 5:22 AM EDT [facility] Hematocrit 41.7 34.0 - 46.6 % 10/26/2024 5:22 AM EDT [facility] MCV 92.7 79.0 - 97.0 fL 10/26/2024 5:22 AM EDT [facility] MCH 30.4 26.6 - 33.0 pg 10/26/2024 5:22 AM EDT [facility] MCHC 32.9 31.5 - 35.7 g/dL 10/26/2024 5:22 AM EDT [facility] RDW 13.6 12.3 - 15.4 % 10/26/2024 5:22 AM EDT [facility] RDW-SD 46.1 37.0 - 54.0 fl 10/26/2024 5:22 AM EDT [facility] MPV 10.1 6.0 - 12.0 fL 10/26/2024 5:22 AM EDT [facility] Platelets 182 140 - 450 10*3/mm3 10/26/2024 5:22 AM EDT [facility] Neutrophil % 60.0 42.7 - 76.0 % 10/26/2024 5:22 AM EDT [facility] Lymphocyte % 28.6 19.6 - 45.3 % 10/26/2024 5:22 AM EDT [facility] Monocyte % 7.6 5.0 - 12.0 % 10/26/2024 5:22 AM EDT [facility] Eosinophil % 3.4 0.3 - 6.2 % 10/26/2024 5:22 AM EDT [facility] Basophil % 0.3 0.0 - 1.5 % 10/26/2024 5:22 AM EDT [facility] Immature Grans % 0.1 0.0 - 0.5 % 10/26/2024 5:22 AM EDT [facility] Neutrophils, Absolute 4.08 1.70 - 7.00 10*3/mm3 10/26/2024 5:22 AM EDT [facility] Lymphocytes, Absolute 1.95 0.70 - 3.10 10*3/mm3 10/26/2024 5:22 AM EDT [facility] Monocytes, Absolute 0.52 0.10 - 0.90 10*3/mm3 10/26/2024 5:22 AM EDT [facility] Eosinophils, Absolute 0.23 0.00 - 0.40 10*3/mm3 10/26/2024 5:22 AM EDT [facility] Basophils, Absolute 0.02 0.00 - 0.20 10*3/mm3 10/26/2024 5:22 AM EDT [facility] Immature Grans, Absolute 0.01 0.00 - 0.05 10*3/mm3 10/26/2024 5:22 AM EDT [facility] Blood Line / Unknown 10/26/2024 5: 17 AM EDT 10/26/2024 5:19 AM EDT us Los Mazariegos MD LAB BLOOD ORDERABLES Final Result [facility]
[address] [place] [address], [place] * Lavender Top (10/26/2024 5:17 AM EDT) Extra Tube hold for add-on 10/26/2024 5:30 AM EDT [facility] Comment:Auto resulted Blood Line / Unknown 10/26/2024 5: 17 AM EDT 10/26/2024 5:19 AM EDT Los Mazariegos MD LAB BLOOD ORDER ONLY Final Result [facility]
[address] [facility] [address] [place] [address], [place] * Light Blue Top (10/26/2024 5:17 AM EDT) Extra Tube Hold for add-ons. 10/26/2024 5:30 AM EDT [facility] Comment:Auto resulted Blood Line / Unknown 10/26/2024 5: 17 AM EDT 10/26/2024 5:19 AM EDT Los Mazariegos MD LAB BLOOD ORDER ONLY Final Result Performing Organization Address City/[facility]/ZIP Co de Phone Number [facility]
[address] [place] [address], [place] * High Sensitivity Troponin T (10/26/2024 5:17 AM EDT) HS Troponin T <6 <14 ng/L 10/26/2024 5:39 AM EDT [facility] Blood Line / Unknown 10/26/2024 5: 17 AM EDT 10/26/2024 5:19 AM EDT Los Mazariegos MD LAB BLOOD ORDERABLES Final Result Performing Organization Address City/[facility]/ZIP Co de Phone Number [facility]
[address] [facility] [address] [place] [address], [place] * BNP (10/26/2024 5:17 AM EDT) proBNP 62.7 0.0 - 900.0 pg/mL 10/26/2024 5:40 AM EDT [facility] Blood Line / Unknown 10/26/2024 5: 17 AM EDT 10/26/2024 5:19 AM EDT Narrative [facility] - 10/26/2024 5:40 AM EDT This assay is used as an aid in the diagnosis of individuals suspected of having heart failure. It can be used as an aid in the diagnosis of acute decompensated heart failure (ADHF) in patients presenting with signs and symptoms of ADHF to the emergency department (ED). In addition, NT-proBNP of <300 pg/mL indicates ADHF is not likely. Age Range Result Interpretation NT-proBNP Concentration (pg/mL: <50 Positive >450 Suazo 300-450 Negative <300 50-75 Positive >900 Suazo 300-900 Negative <300 >75 Positive >1800 Suazo 300-1800 Negative <300 Los Mazariegos MD LAB BLOOD ORDERABLES Final Result [facility]
[address] [place] [address], [place] * Magnesium (10/26/2024 5:17 AM EDT) Magnesium 2.2 1.6 - 2.4 mg/dL 10/26/2024 5:43 AM EDT [facility] Blood Line / Unknown 10/26/2024 5: 17 AM EDT 10/26/2024 5:19 AM EDT Los Mazariegos MD LAB BLOOD ORDERABLES Final Result [facility]
[address] [facility] [address] [place] [address], [place] * Lipase (10/26/2024 5:17 AM EDT) Lipase 42 13 - 60 U/L 10/26/2024 5:42 AM EDT [facility] Blood Line / Unknown 10/26/2024 5: 17 AM EDT 10/26/2024 5:19 AM EDT us Los Mazariegos MD LAB BLOOD ORDERABLES Final Result [facility]
[address] [facility] [address] [place] [address], [place] * (ABNORMAL) Comprehensive Metabolic Panel (10/26/2024 5:17 AM EDT) Glucose 122(H) 65 - 99 mg/dL 10/26/2024 5:43 AM EDT [facility] BUN 13.6 8.0 - 23.0 mg/dL 10/26/2024 5:43 AM EDT [facility] Creatinine 0.59 0.57 - 1.00 mg/dL 10/26/2024 5:43 AM EDT [facility] Sodium 137 136 - 145 mmol/L 10/26/2024 5:43 AM EDT [facility] Potassium 4.0 3.5 - 5.2 mmol/L 10/26/2024 5:43 AM EDT [facility] Chloride 102 98 - 107 mmol/L 10/26/2024 5:43 AM EDT [facility] CO2 24.6 22.0 - 29.0 mmol/L 10/26/2024 5:43 AM EDT [facility] Calcium 9.6 8.6 - 10.5 mg/dL 10/26/2024 5:43 AM EDT [facility] Total Protein 7.1 6.0 - 8.5 g/dL 10/26/2024 5:43 AM EDT [facility] Albumin 4.8 3.5 - 5.2 g/dL 10/26/2024 5:43 AM EDT [facility] ALT (SGPT) 15 1 - 33 U/L 10/26/2024 5:43 AM EDT [facility] AST (SGOT) 22 1 - 32 U/L 10/26/2024 5:43 AM EDT [facility] Alkaline Phosphatase 81 39 - 117 U/L 10/26/2024 5:43 AM EDT [facility] Total Bilirubin 0.2 0.0 - 1.2 mg/dL 10/26/2024 5:43 AM EDT [facility] Globulin 2.3 gm/dL 10/26/2024 5:43 AM EDT [facility] A/G Ratio 2.1 g/dL 10/26/2024 5:43 AM EDT [facility] BUN/Creatinine Ratio 23.1 7.0 - 25.0 10/26/2024 5:43 AM EDT [facility] Anion Gap 10.4 5.0 - 15.0 mmol/L 10/26/2024 5:43 AM EDT [facility] eGFR 99.5 >60.0 mL/min/1.7 3 10/26/2024 5:43 AM EDT [facility] Blood Line / Unknown 10/26/2024 5: 17 AM EDT 10/26/2024 5:19 AM EDT [facility] - 10/26/2024 5:43 AM EDT GFR Categories in Chronic Kidney Disease (CKD) GFR Category GFR (mL/min/1.73) Interpretation G1 90 or greater Normal or high (1) G2 60-89 Mild decrease (1) G3a 45-59 Mild to moderate decrease G3b 30-44 Moderate to severe decrease G4 15-29 Severe decrease G5 14 or less Kidney failure (1)In the absence of evidence of kidney disease, neither GFR category G1 or G2 fulfill the criteria for CKD. eGFR calculation 2020 CKD-EPI creatinine equation, which does not include race as a factor us Los Mazariegos MD LAB BLOOD ORDERABLES Final Result [facility]
[address] [address], * Mammo Screening Digital Tomosynthesis Bilateral With CAD (10/18/2023 11:32 AM EDT) Anatomical Region Laterality Modality Breast N/A Mammography 10/21/2023 9:57 AM EDT Impressions 10/21/2023 9:59 AM EDT No mammographic findings suspicious for malignancy. RECOMMENDATION: Continue annual screening mammography. BI-RADS CATEGORY 1, NEGATIVE. CAD was utilized. The standard false-negative rate of mammography is between 10% and 25%. Complex patterns or increased breast density will markedly elevate the false-negative rate of mammography. A letter, in lay terminology, with the results of this exam will be mailed to the patient. This report was finalized on 10/21/2023 9:[address] Lachelle Ferro MD. Narrative 10/21/2023 9:59 AM EDT BILATERAL SCREENING MAMMOGRAM WITH TOMOSYNTHESIS: HISTORY: The patient has no personal history or significant family history of breast cancer and no focal breast complaints at the time of screening mammography. TECHNIQUE: Bilateral CC and MLO low dose, full field digital mammographic images were obtained with tomosynthesis. COMPARISON: 10/01/2022, 07/22/2021, 05/19/2021, 01/05/2019, 11/15/2017, 09/14/2016, and 03/04/2015 FINDINGS: There are scattered areas of fibroglandular density. The fibroglandular pattern is stable. There are no suspicious masses, worrisome calcifications, nonsurgical areas of architectural distortion, or other secondary signs of malignancy. Kia Ha MD IMG MAMMOGRAPHY ORDERABLES Kanwal l Result from Last 3 Months or Most Recently Relevant to Health Maintenance [place] [address] MEDICARE A & B [employer] Care Teams Clinical Auditor Relationship Specialty Start Date End Date Kia Ha MD [address] [address] PCP - General 02/13/15
--- OUTSIDE RECORDS SUMMARY | 2025-01-24 14:02 | XMS_ITS | Encounter Summary ---
Author Organization [facility] Address [address] [place] [address] Care Team Providers Care Cryptologic Technician Technical Name Role Phone Kia Ha MD Primary Care Provider [phone] Encounter Details Date Type Department Care Team (Latest Contact Info) Description 11/28/2024 Travel Social History Tobacco Use Types Packs/Day [...] Appointment [facility] [address] [place] [address] 01/09/2026 10:30 AM EDT Office Visit [facility] MEDICAL [facility] CARDIOLOGY [facility] PENDING S[facility] TO [facility] [address] [place] [phone] Gianni Delgado III, MD [address] [place] [address] documented as of this encounter Visit Diagnoses Not on filedocumented in this encounter Care Teams Cryptologic Technician Technical Relationship Specialty Start Date End Date Kia Ha MD [address] [facility] [address] [place] [address] PCP - General 02/13/15 documented as of this encounter
--- OUTSIDE RECORDS SUMMARY | 2025-01-24 14:02 | XMS_ITS | Encounter Summary ---
Author Organization [facility] Address [address] [place] [address] Care Team Providers Care Wheel Mill Operator Name Role Phone Kia Ha MD Primary Care Provider [phone] Encounter Details Date Type Department Care Team (Late st Contact Info) Description 11/29/2024 Results Follow-Up [facility] CARDIOLOGY 1720 [facility] [address] [place] [address] Jesus Nesbitt APRN 1720 [facility] [address] [place] [phone] Social History Tobacco Use Types Packs/Day Years [...] Info) Description 02/23/2025 1:00 PM EDT Appointment [facility] [address] [place] [address] 01/09/2026 10:30 AM EDT Office Visit [facility] CARDIOLOGY [address] [facility] [address] [place] [address] Gianni Delgado III, MD [address] [facility] [address] [place] [phone] documented as of this encounter Visit Diagnoses Not on filedocumented in this encounter Care Teams Wheel Mill Operator Relationship Specialty Start Date End Date Kia Ha MD [address] [facility] [address] [place], [place] [id number] PCP - General 02/13/15 documented as of this encounter
[2025-01-26 19:43] LABS: C difficile Toxins AB, EIA Negative (Negative)
== END 2025-01-24 23:59 | disposition home or self-care (01) ==
LOC: LAB 13:59
PROVIDERS: Visit Provider Nurse Practitioner Family
DX: R19.7 Diarrhea, unspecified (principal)
CPT/HCPCS: 87324

== ENCOUNTER 2025-01-26 10:20 | Outpatient (CLI) | payer MEDICARE, OTHER, SELFPAY ==
--- OUTSIDE RECORDS SUMMARY | 2024-11-28 08:30 | XMS_ITS | Encounter Summary ---
Author Organization [facility] Address [address] [place] [address] Care Team Providers Care Epilepsy Physician Name Role Phone Kia Ha MD Primary Care Provider [phone] Reason for Referral * Consultation (Routine) - Closed Specialty Diagnoses / Procedures Referred By Pili ricardo Referred To Contact Cardiology Diagnoses Palpitations PAC (premature atrial contraction) Procedures DC OFFICE/OUTPATIENT NEW MODERATE MDM 45 MINUTES Jesus Nesbitt APRN [address] [place] [address] Phone: tel: fax: Vivian Humphrey MD [address] [facility] [address] [place] [address] Phone: tel: fax: Referral ID Status Reason Start Date Expiration Date V isits Requested Visits Authorized [id number] Closed Specialty Services Required 11/28/2024 02/27/2026 1 1 Scheduling Instructions Please schedule 3-4 weeks. * Diagnostic Imaging (Routine) - Closed Specialty Diagnoses / Procedures Referred By Pili ricardo Referred To Contact Diagnoses Palpitations PAC (premature atrial contraction) Shortness of breath Procedures Adult Transthoracic Echo Complete W/ Cont if Necessary Per Protocol Jesus Nesbitt APRN [address] [place] [address] Phone: tel: fax: Referral ID Status Reason Start Date Expiration Date Visits Re quested Visits Authorized [id number] Closed 11/28/2024 02/27/2026 1 1 Reason for Visit * Reason Comments Palpitations Monitor results Encounter Details Date Type Department Care Team (Late st Contact Info) Description 11/28/2024 8:30 AM EDT Office Visit [facility] [address] [facility] [address] [place] [phone] Jesus Nesbitt APRN [address] [facility] [address] [place] [address] Palpitations (Primary Dx); PAC (premature atrial contraction); Shortness of breath Social History Tobacco Use Types Packs/Day Years Used Date Smoking Tobacco: Never Passive Smoke Exposure: Never Smokeless Tobacco: Never Alcohol Use Standard Drinks/Week Comments Yes 2 (1 standard drink = 0.6 oz pur e alcohol) Abuse Screen Answer Date Recorded Feels Unsafe at Home or Work/School no 10/26/2024 Feels Threatened by Someone no 09/29 Does Anyone Try to Keep You From Having Contact with Others or Doing Things Outside Your Home? no 10/26/2024 Physical Signs of Abuse Present no 10/26/2024 Comments No Sex and Gender Information Value Date Recorded Sex Assigned at Not on file Legal Sex Female 10:55 AM EDT Gender Identity Not on file Sexual Orientation Not on file documented as of this encounter Last Filed Vital Signs Vital Sign Reading Time Taken Comments Blood Pressure 142/65 11/28/2024 8:43 AM EDT Pulse 60 11/28/2024 8:43 AM EDT reg Temperature - - Respiratory Rate 18 11/28/2024 8:43 AM EDT Oxygen Saturation 97% 11/28/2024 8:43 AM EDT ra Inhaled Oxygen Concentration - - Weight 73 kg (161 lb) 11/28/2024 8:43 AM EDT Height 162.6 cm (5' 4 ) 11/28/2024 8:43 AM EDT Body Mass Index 27.64 11/28/2024 8:43 AM EDT documented in this encounter Patient Instructions * Patient Instructions* Jesus Nesbitt APRN - 11/28/2024 8:30 AM EDT - Upper arm OMRON BP cuff - Toprol-XL 25mg nightly - Office will schedule testing - Office will call or send message with testing results - Cardiology department will call for appointment documented in this encounter Progress Notes * Jesus Nesbitt APRN - 11/28/2024 8:30 AM EDT Chief Complaint Palpitations (Monitor results) Subjective History of Present Illness {CC Problem List Visit Diagnosis Encounters Notes Medications Labs Result Review Imaging Media :23} Aris Brownbryansaul, 69 y.o. female with HTN presents to [facility] Heart and Valve Atrial Fibrillation/arrhythmia clinic for Palpitations (Monitor results). 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 Short duration atrial tachycardia longest 9 beats. Average heart rate 67 bpm. Low burden PVC less than 1%. PAC burden 10%. Prior echocardiogram 2018 with LVEF 61-65% and no significant valvular abnormality. Presents today with continued intermittent palpitations. No pronounced episodes since prior ED evaluation. Walking 3 miles 4-5 times per week with no cardiac symptoms. Previous evaluation: Patient was recently evaluated at [facility] emergency department for complaints of irregular heart rate, PVC on ambulatory ECG monitor. Emergency department work-up revealed normal troponin/BNP, CXR with no acute cardiopulmonary findings, and ECGs with no evidence of arrhythmia/acuteischemia. Patient was instructed to follow-up at [facility] heart and valve center for further evaluation. Patient presents today noting intermittent palpitations over the past few months. Describes palpitations as a forceful heartbeat, irregular pulse; generally at rest. No sustained tachypalpitations ornear syncope/syncope. Walking 3-4 miles a few times per week with no palpitations during exercise. D oes note some drinks the night before recent symptom onset. 2 cups of coffee daily, a couple of alcohol drinks per week. No thyroid issues. Objective Vital Signs: Vitals: 11/28/24 0843 BP: 142/65 BP Location: Left arm Patient Position: Sitting Cuff Size: Adult Pulse: 60 Resp: 18 SpO2: 97% Weight: 73 kg (161 lb) Height: 162.6 cm (64 ) Body mass index is 27.64 kg/m??. Physical Exam Vitals and nursing note reviewed. Constitutional: Appearance: Normal appearance. HENT: Head: Normocephalic. Eyes: Extraocular Movements: Extraocular movements intact. Neck: Vascular: No carotid bruit. Cardiovascular: Rate and Rhythm: Normal rate and regular rhythm. Pulses: Normal pulses. Heart sounds: Normal heart sounds, S1 normal and S2 normal. No murmur heard. Pulmonary: Effort: Pulmonary effort is normal. No respiratory distress. Breath sounds: Normal breath sounds. Musculoskeletal: Cervical back: Neck supple. Right lower leg: No edema. Left lower leg: No edema. Skin: General: Skin is warm and dry. Neurological: General: No focal deficit present. Mental Status: She is alert. Psychiatric: Mood and Affect: Mood normal. Behavior: Behavior normal. Thought Content: Thought content normal. Data Reviewed:{ Labs Result Review Imaging Med Tab Media :23} Holter Monitor - 72 Hour Up To 15 Days (10/30/2024 10:33) Adult Transthoracic Echo Complete W/ Cont if Necessary Per Protocol (02/01/2019 15:39) High Sensitivity Troponin T 1Hr (10/26/2024 06:21) Magnesium (10/26/2024 05:17) TSH Rfx On Abnormal To Free T4 (10/26/2024 05:17) BNP (10/26/2024 05:17) Comprehensive Metabolic Panel (10/26/2024 05:17) CBC & Differential (10/26/2024 05:17) High Sensitivity Troponin T (10/26/2024 05:17) XR Chest 1 View (10/26/2024 05:25) ECG 12 Lead Chest Pain (10/26/2024 05:05) ECG 12 Lead Chest Pain (10/26/2024 06:07) Assessment & Plan Assessment and Plan {CC Problem List Visit Diagnosis ROS Review (Popup) Health Maintenance Quality BestPractice Medications SmartSets SnapShot Encounters Media :23} 1. Palpitations -Recently evaluated at [facility] emergency department for complaints of irregular heart rate, PVC on ambulatory ECG monitor. Pronounced symptoms at time of ED evaluation after isolatedincreased alcohol intake. 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 Short duration atrial tachycardia longest 9 beats. Average heart rate 67 bpm. Low burden PVC less than 1%. PAC burden 10%. -Prior echocardiogram 2018 with LVEF 61-65% and no significant valvular abnormality. -Continued intermittent isolated palpitations but no sustained tachypalpitations -Repeat TTE for structural/functional evaluation -Initiate Toprol-XL 25 Mg nightly for PACs and palpitations -Discussed AF monitoring with [employer] -Referral to cardiology for surveillance 2. Essential hypertension -Elevated today, but typically well-controlled on ambulatory monitoring -Continue amlodipine 5 Mg daily as prescribed -Continue routine ambulatory BP monitoring Follow Up {Instructions Charge Capture Follow-up Communications :23} Return if symptoms worsen or fail to improve. Patient was given instructions and counseling regarding her condition or for health maintenance advice. Please see specific information pulled into the AVS if appropriate. Patient was instructed to call the Heart and Valve Center with any questions, concerns, or worsening symptoms. Dictated Utilizing [employer] Dictation Please note that portions of this note were completed with a voice recognition program. Part of this note may be an electronic carbon sequestration plant manager/translation of spoken language to printed text using the [employer] Dictation System. documented in this encounter Plan of Treatment Upcoming Encounters Date Type Department Care Team (Late st Contact Info) Description 02/23/2025 1:00 PM EDT Appointment [facility] [address] [place] [address] 01/09/2026 10:30 AM EDT Office Visit [facility] [address] [facility] [address] [place] [id number] Gianni Delgado III, MD [address] [facility] [address] [place] [address] Scheduled Referrals Name Type Priority Associated Diagnoses Order Schedule Ambulatory Referral to Cardiology for Arrythmia, Other; Frequent PACs. Outpatient Referral Routine Palpitations PAC (premature atrial contraction) Ordered: 11/28/2024 documented as of this encounter Results * ECHO COMPLETE W/ DOPPLER AND COLOR FLOW (11/29/2024 11:45 AM EDT) EF(MOD-bp) 62.8 % LVIDd 5.0 cm LVIDs 3.2 cm IVSd 0.90 cm LVPWd 0.90 cm FS 36.0 % IVS/LVPW 1.00 cm ESV(cubed) 32.8 ml LV Sys Vol (BSA corrected) 19.6 cm2 EDV(cubed) 125.0 ml LV Posadas Vol (BSA corrected) 56.0 cm2 LV mass(C)d 158.2 grams LVOT area 3.1 cm2 LVOT diam 2.00 cm EDV(MOD-sp2) 76.3 ml EDV(MOD-sp4) 99.4 ml ESV(MOD-sp2) 31.4 ml ESV(MOD-sp4) 34.8 ml SV(MOD-sp2) 44.9 ml SV(MOD-sp4) 64.6 ml SVi(MOD-SP2) 25.3 ml/m2 SVi(MOD-SP4) 36.4 ml/m2 SVi (LVOT) 47.7 ml/m2 EF(MOD-sp2) 58.8 % EF(MOD-sp4) 65.0 % MV E max tripp 71.8 cm/sec MV A max tripp 90.7 cm/sec MV dec time 0.23 sec MV E/A 0.79 IVRT 70.0 ms LA ESV Index (BP) 21.8 ml/m2 Med Peak E' Tripp 7.0 cm/sec Lat Peak E' Tripp 10.1 cm/sec TR max tripp 234.7 cm/sec Avg E/e' ratio 8.40 SV(LVOT) 84.7 ml RV Base 3.2 cm RV Mid 2.40 cm RV Length 7.6 cm TAPSE (>1.6) 2.7 cm RV S' 15.6 cm/sec LA dimension (2D) 3.4 cm LV V1 max 112.5 cm/sec LV V1 max PG 5.1 mmHg LV V1 mean PG 2.5 mmHg LV V1 VTI 27.0 cm Ao pk tripp 146.5 cm/sec Ao max PG 8.6 mmHg Ao mean PG 5.0 mmHg Ao V2 VTI 36.2 cm LEON(I,D) 2.34 cm2 Dimensionless Index 0.74 (DI) MV max PG 4.5 mmHg MV mean PG 1.00 mmHg MV V2 VTI 30.4 cm MV P1/2t 56.4 msec MVA(P1/2t) 3.9 cm2 MVA(VTI) 2.8 cm2 MV dec slope 419.0 cm/sec2 TR max PG 22.7 mmHg PA V2 max 91.8 cm/sec PA acc time 0.14 sec PI end-d tripp 80.2 cm/sec Ao root diam 2.6 cm RVSP(TR) 26 mmHg RAP systole 3 mmHg BH CV VAS BP LEFT ARM 117/71 mmHg Anatomical Region Laterality Modality Ultrasound Narrative 11/29/2024 4:03 PM EDT Left ventricular systolic function is normal. Calculated left ventricular EF = 62.8% Left ventricular ejection fraction appears to be 61 - 65%. Left ventricular diastolic function was normal. Estimated right ventricular systolic pressure from tricuspid regurgitation is normal (<35 mmHg). Calculated right ventricular systolic pressure from tricuspid regurgitation is 26 mmHg. Left Ventricle Left ventricular systolic function is normal. Calculated left ventricular EF = 62.8% Left ventricular ejection fraction appears to be 61 - 65%. Normal left ventricular cavity size and wall thickness noted. All left ventricular wall segments contract normally. Left ventricular diastolic function was normal. Right Ventricle Normal right ventricular cavity size, wall thickness, systolic function and septal motion noted. Left Atrium Normal left atrial size and volume noted. Right Atrium Normal right atrial cavity size noted. Mitral Valve The mitral valve is structurally normal with no regurgitation or significant stenosis present. Tricuspid Valve The tricuspid valve is structurally normal with no significant stenosis present. Trace tricuspid valve regurgitation is present. Estimated right ventricular systolic pressure from tricuspid regurgitation is normal (<35 mmHg). Calculated right ventricular systolic pressure from tricuspid regurgitation is 26 mmHg. Aortic Valve The aortic valve is structurally normal with no regurgitation or stenosis present. Pulmonic Valve The pulmonic valve is structurally normal with no significant stenosis present. There is trace pulmonic valve regurgitation present. Pericardium There is no evidence of pericardial effusion. . Greater Vessels No dilation of the aortic root is present. The inferior vena cava is normally sized. Normal IVC inspiratory collapse of greater than 50% noted. Study Quality The study is technically good for diagnosis. Normal sinus was the predominant rhythm observed during the procedure. Jesus Nesbitt APRN CV ECHO ORDERABLES Final R esult documented in this encounter Visit Diagnoses Diagnosis Palpitations- Primary PAC (premature atrial contraction) Supraventricular premature beats Shortness of breath Palpitations PAC (premature atrial contraction) Supraventricular premature beats Shortness of breath documented in this encounter Care Teams Epilepsy Physician Relationship Specialty Start Date End Date Kia Ha MD [address] [place] [address] PCP - General 02/13/15 documented as of this encounter
--- OUTSIDE RECORDS SUMMARY | 2024-11-29 10:42 | XMS_ITS | Encounter Summary ---
Author Organization [facility] Address [address] [place] [address] Care Team Providers Care Water Superintendent Name Role Phone Kia Ha MD Primary Care Provider [phone] Reason for Referral * Diagnostic Imaging (Routine) - Closed Specialty Diagnoses / Procedures Referred By Contac t Referred To Contact Diagnoses Palpitations PAC (premature atrial contraction) Shortness of breath Procedures Adult Transthoracic Echo Complete W/ Cont if Necessary Per Protocol Jesus Nesbitt APRN [address] [place] [address] Phone: tel: fax: Referral ID Status Reason Start Date Expiration Date Visits Re quested Visits Authorized Closed 11/28/2024 02/27/2026 1 1 Reason for Visit * Diagnostic Imaging (Routine) - Closed Specialty Diagnoses / Procedures Referred By Contac t Referred To Contact Diagnoses Palpitations PAC (premature atrial contraction) Shortness of breath Procedures Adult Transthoracic Echo Complete W/ Cont if Necessary Per Protocol Jesus Nesbitt APRN [address] [place] [id number] Phone: tel: fax: Referral ID Status Reason Start Date Expiration Date Visits Re quested Visits Authorized Closed 11/28/2024 02/27/2026 1 1 Encounter Details Date Type Department Care Team (Late st Contact Info) Description 11/29/2024 10:42 AM EDT - 11/29/2024 11:59 PM EDT Hospital Encounter [facility] [place] [address] [place] [address] Jesus Nesbitt, MARGARITO [address] [place] [address] Palpitations; PAC (premature atrial contraction); Shortness of breath Discharge Disposition: Home or Self Care Social History Tobacco Use Types Packs/Day Years [...] Sign Reading Time Taken Comments Blood Pressure - - Pulse - - Temperature - - Respiratory Rate - - Oxygen Saturation - - Inhaled Oxygen Concentration - - Weight 73 kg (160 lb 15 oz) 11/29/2024 10:42 AM EDT Height 162.6 cm (5' 4.02 ) 11/29/2024 10:42 AM E DT Body Mass Index 27.61 11/29/2024 10:42 AM EDT documented in this encounter Medications at Time of Discharge amLODIPine (NORVASC) 5 MG tablet Take 1 tablet by mouth Daily. 03/03/2024 rosuvastatin (CRESTOR) 40 MG tablet Take 1 tablet by mouth every night at bedtime. 09/03/2022 Biotin 5000 MCG tablet Take by mouth. 07/12/2013 Cholecalciferol (Vitamin D-3) 25 MCG (1000 UT) capsule Take by mouth. 07/12/2013 Coenzyme Q10 (CoQ-10) 100 MG capsule Take 1 capsule by mouth Daily. docusate sodium (COLACE) 100 MG capsule Take 2 capsules by mouth every night at bedtime. Magnesium 200 MG tablet Take 1 tablet by mouth Daily. Melatonin 10 MG capsule Take 1 capsule by mouth every night at bedtime. metoprolol succinate XL (TOPROL-XL) 25 MG 24 hr tabletIndication s:Palpitations,P AC (premature atrial contraction) Take 1 tablet by mouth Every Night. 90 tablet 1 11/28/2024 traZODone (DESYREL) 50 MG tablet Take 1 tablet by mouth Every Night. 08/04/2024 ascorbic acid (VITAMIN C) 1000 MG tablet Take 1 tablet by mouth Daily. 01/08/2025 documented as of this encounter Plan of Treatment Upcoming Encounters Date Type Department Care Team (Late st Contact Info) Description 02/23/2025 1:00 PM EDT Appointment [facility] [address] [place] [phone] 01/09/2026 10:30 AM EDT Office Visit [facility] C[facility] [address] [place] [address] Gianni Delgado III, MD [address] [place] [address] documented as of this encounter Procedures Procedure Name Priority Date/Time Associated Diagnosis Comments ECHO COMPLETE W/ DOPPLER AND COLOR FLOW Routine 11/29/2024 11:45 AM EDT Palpitations PAC (premature atrial contraction) Shortness of breath documented in this encounter Results * ECHO COMPLETE W/ [...] the predominant rhythm observed during the procedure. us Jesus Nesbitt APRN CV ECHO ORDERABLES Final R esult documented in this encounter Visit Diagnoses Diagnosis Palpitations PAC (premature atrial contraction) Supraventricular premature beats Shortness of breath documented in this encounter Care Teams Water Superintendent Relationship Specialty Start Date End Date Kia Ha MD [address] [place] [address] PCP - General 02/13/15 documented as of this encounter
--- OUTSIDE RECORDS SUMMARY | 2025-01-08 11:00 | XMS_ITS | Encounter Summary ---
Author Organization [facility] Address [address] [place] [address] Care Team Providers Care Correctional Program Specialist Name Role Phone Kia Ha MD Primary Care Provider [phone] Reason for Visit * Reason Comments Establish Care Palpitations * Consultation (Routine) - Closed Specialty Diagnoses / Procedures Referred By Contac t Referred To Contact Cardiology Diagnoses Palpitations PAC (premature atrial contraction) Procedures [place] OFFICE/OUTPATIENT NEW MODERATE MDM 45 MINUTES Jesus Nesbitt, MARGARITO [address] [place] [address] Phone: tel: fax: Vivian Humphrey MD [address] [facility] [address] [place] [address] Phone: tel: fax: Referral ID Status Reason Start Date Expiration Date V isits Requested Visits Authorized [id number] Closed Specialty Services Required 11/28/2024 02/27/2026 1 1 Encounter Details Date Type Department Care Team (Late st Contact Info) Description 01/08/2025 11:00 AM EDT Office Visit [facility] [address] [facility] [address] [place] [address] Gianni Delgado III, MD [address] [place] [address] Premature atrial complexes (Primary Dx) Social History [...] III, MD - 01/08/2025 11:00 AM EDT [facility] Cardiology Office visit Aris Reddy 1955 There is no work phone number on file. VISIT DATE: 01/08/2025 PCP: Kia Ha MD [address] [address] CC: Chief Complaint Patient presents with Establish [...] triggers. Will continue to trend arrhythmia via [employer] mobile device at home. Continue low-dose beta-blockade. [...] Description 02/23/2025 1:00 PM EDT Appointment [facility] [address] [place] [address] 01/09/2026 10:30 AM EDT Office Visit [facility] [address] [facility] [address] [place] [address] Gianni Delgado III, MD [address] [facility] [address] [facility] [address] [place] [address] Scheduled Referrals Name Type Priority Associated Diagnoses Order Schedule Ambulatory Referral to Cardiology for Arrythmia, Other; Frequent PACs. Outpatient Referral Routine Palpitations PAC (premature atrial contraction) Ordered: 11/28/2024 documented as of this encounter Visit Diagnoses Diagnosis Premature atrial complexes- Primary Supraventricular premature beats documented in this encounter Care Teams Correctional Program Specialist Relationship Specialty Start Date End Date Kia Ha MD [address] [facility] [address] [place] [address] PCP - General 02/13/15 documented as of this encounter
--- OUTSIDE RECORDS SUMMARY | 2025-01-17 12:31 | XMS_ITS | Encounter Summary ---
Author Organization [facility] Address [address] [place] [address] Care Team Providers Care Home Service Technician Name Role Phone Kia Ha MD Primary Care Provider [phone] Reason for Referral * Cardiac Stress Testing (Routine) - Closed Specialty Diagnoses / Procedures Referred By Pili ricardo Referred To Contact Diagnoses Precordial pain Procedures Treadmill Stress Test Gianni Delgado III, MD [address] [place] [address] Phone: tel: fax: Referral ID Status Reason Start Date Expiration Date Visits Re quested Visits Authorized [id number] Closed 01/10/2025 04/11/2026 1 1 Reason for Visit * Cardiac Stress Testing (Routine) - Closed Specialty Diagnoses / Procedures Referred By Pili ricardo Referred To Contact Diagnoses Precordial pain Procedures Treadmill Stress Test Gianni Delgado III, MD [address] [place] [address] Phone: tel: fax: Referral ID Status Reason Start Date Expiration Date Visits Re quested Visits Authorized Closed 01/10/2025 04/11/2026 1 1 Encounter Details Date Type Department Care Team (Late st Contact Info) Description 01/17/2025 12:31 PM EDT - 01/17/2025 11:59 PM EDT Hospital Encounter [facility] [address] [place] [address] Gianni Delgado III, MD [address] [place] [address] Precordial pain Discharge Disposition: Home or Self [...] Info) Description 02/23/2025 1:00 PM EDT Appointment [facility] [address] [place] [address] 01/09/2026 10:30 AM EDT Office Visit [facility] [address] [facility] [address] [place] [address] Gianni Delgado III, MD [address] [facility] [address] [place] [address] documented as of this encounter Procedures Procedure [...] recovery. Arrhythmias during recovery: occasional PAC's. Test Bottom Brusher ECG Parker Gianni Delgado III, MD CV STRESS ORDERABLES Final Result documented in this encounter Visit Diagnoses Diagnosis Precordial pain documented in this encounter Care Teams Home Service Technician Relationship Specialty Start Date End Date Kia Ha MD [address] [place] [address] PCP - General 02/13/15 documented as of this encounter
--- OUTSIDE RECORDS SUMMARY | 2025-01-26 10:23 | XMS_ITS | Encounter Summary ---
Author Organization [facility] Address [address] [place] [address] Care Team Providers Care Tablet Machine Operator Name Role Phone Kia Ha MD Primary Care Provider [phone] Reason for Visit * Reason Onset Date Comments Medication Reconciliation 01/05/2025 Encounter Details Date Type Department Care Team (Late st Contact Info) Description 01/05/2025 Telephone [facility] CARDIOLOGY 1720 [facility] [address] [place] [address] Gianni Delgado III, MD [address] [facility] [address] [place] [address] Medication Reconciliation Social History Tobacco Use Types [...] Info) Description 02/23/2025 1:00 PM EDT Appointment [address] [address] 01/09/2026 10:30 AM EDT Office Visit [facility] MEDICAL [facility] [facility] [address] [place] [address] Gianni Delgado III, MD [address] [place] [address] [place] [address] documented as of this encounter Visit Diagnoses Not on filedocumented in this encounter Care Teams Tablet Machine Operator Relationship Specialty Start Date End Date Kia Ha MD 1775 [facility] 201 [place] [address] PCP - General 02/13/15 documented as of this encounter
--- OUTSIDE RECORDS SUMMARY | 2025-01-26 10:23 | XMS_ITS | Encounter Summary ---
Author Organization [facility] Address [address] [place] [address] Care Team Providers Care Commercial Loan Assistant Name Role Phone Kia Ha MD Primary Care Provider [phone] Encounter Details Date Type Department Care Team (Late st Contact Info) Description 11/29/2024 Results Follow-Up [facility] CARDIOLOGY 1720 [facility] [address] [place] [address] Jesus Nesbitt APRN 1720 [facility] [address] [place] [phone] Social History Tobacco Use Types Packs/Day Years [...] Info) Description 02/23/2025 1:00 PM EDT Appointment [facility] [address] [place] [address] 01/09/2026 10:30 AM EDT Office Visit [facility] CARDIOLOG[facility] [address] [facility] [address] [place] [address] Gianni Delgado III, MD [address] [place] [address] [facility] [address] [place] [phone] documented as of this encounter Visit Diagnoses Not on filedocumented in this encounter Care Teams Commercial Loan Assistant Relationship Specialty Start Date End Date Kia Ha MD [address] [facility] [address] [place], [place] [phone] PCP - General 02/13/15 documented as of this encounter
--- OUTSIDE RECORDS SUMMARY | 2025-01-26 10:23 | XMS_ITS | Clinical Summary ---
Author Organization [facility] Address [address] [place] [address] Care Team Providers Care Gill Box Fixer Name Role Phone Kia Ha MD Primary Care Provider [phone] Allergies Active Allergy Reactions Criticality Noted Date [...] - 01/17/2025 11:59 PM EDT Hospital Encounter [facility] CARDIOV[facility]ULAR LAB [address]20 [facility] 3rd [place] [address] Gianni Delgado III, MD Precordial pain Discharge Disposition: Home or Self Care 01/17/2025 Results Follow-Up [facility] CARDIOLOGY 1720 [facility] HI [address] [place] [address] Gianni Delgado III, MD 01/17/2025 Travel 01/10/2025 Telephone [facility] CARDIOLOGY 1720 [facility] HI [address] [place] [address] Gianni Delgado III, MD 01/08/2025 11:00 AM EDT Office Visit [facility] CARDIOLOG[facility] 1720 [facility] HI [address] [place] [address] Gianni Delgado III, MD Premature atrial complexes (Primary Dx) 01/08/2025 Travel 01/05/2025 Telephone [facility] CARDIOLOG[facility] 1720 [facility] HI [address] [place] [address] Gianni Delgado III, MD Medication Reconciliation 11/29/2024 10:42 AM EDT - 11/29/2024 11:59 PM EDT Hospital Encounter [facility] NONINVASIVE LAB [place] [address] [facility] HI [address] [place] [address] Jesus Nesbitt APRN Palpitations; PAC (premature atrial contraction); Shortness of breath Discharge Disposition: Home or Self Care 11/29/2024 Results Follow-Up [facility] CARDIOLOGY 1720 [facility] [address] [place] [address] Jesus Nesbitt APRN 11/28/2024 8:30 AM EDT Office Visit [facility] [address] [facility] [address] [place] [address] Jesus Nesbitt APRN Palpitations (Primary Dx); PAC (premature atrial contraction); Shortness of breath 11/28/2024 Travel 11/22/2024 Results Follow-Up [facility] [address] [facility] [address] [place] [address] Jesus Nesbitt APRN 10/30/2024 10:26 AM EDT - 10/30/2024 11:59 PM EDT Hospital Encounter [facility] [address] [facility] B[facility] [address] [place] [address] Palpitations Discharge Disposition: Home or Self Care 10/30/2024 9:00 AM EDT Office Visit [facility] C[facility] 1720 [facility] HI [address] [place] [address] Jesus Nesbitt APRN Palpitations (Primary Dx); Essential hypertension 10/30/2024 Travel 10/26/2024 5:06 AM EDT - 10/26/2024 7:15 AM EDT Emergency [facility] EMERGENCY DEPARTMENT [address] [place] [address] Los Mazariegos MD Palpitations (Primary Dx) Discharge [...] Description 02/23/2025 1:00 PM EDT Appointment [facility] [address] [place] [address] 01/09/2026 10:30 AM EDT Office Visit [facility] CARDIOLOGY [address] [place] [address] Gianni Delgado III, MD [address] [place] [address] Health Maintenance Due Date Last Done Comments [...] HOLTER MONITOR >7DAYS UP TO 15 DAYS ([id number]) Routine 10/30/2024 10:33 AM EDT Palpitations HIGH [...] recovery. Arrhythmias during recovery: occasional PAC's. Test Metal Hardener ECG [place] Gianni Delgado III, MD CV STRESS ORDERABLES [...] HOLTER MONITOR >7DAYS UP TO 15 DAYS ([id number]) (10/30/2024 10:33 AM EDT) Anatomical Region Laterality [...] <6 <14 ng/L 10/26/2024 6:42 AM EDT [facility] Troponin T Numeric Delta 10/26/2024 6:42 AM EDT [facility] Comment:Unable to calculate. Blood Line / Unknown 10/26/2024 6: 21 AM EDT 10/26/2024 6:24 AM EDT Narrative [facility] - 10/26/2024 6:42 AM EDT [...] Mazariegos MD LAB BLOOD ORDERABLES Final Result [facility]
[address] [facility] [address] [place] [address], [place] * ECG 12 Lead Chest Pain [...] MD 10/26/2024 5:30 AM EDT Workstation ID: [id number] Narrative 10/26/2024 5:30 AM EDT XR CHEST [...] MD 10/26/2024 5:30 AM EDT Workstation ID: [id number] Los Mazariegos MD IMG DIAGNOSTIC IMAGING ORDE RABMANE Final Result * Suazo Top (10/26/2024 5:17 AM EDT) Extra Tube Hold for add-ons. 10/26/2024 5:30 AM EDT [facility] Comment:Auto resulted. Blood Line / Unknown 10/26/2024 5: 17 AM EDT 10/26/2024 5:19 AM EDT Los Mazariegos MD LAB BLOOD ORDER ONLY Final Result Performing Organization Address City/[facility]/ZIP Co de Phone Number [facility]
[address] [place] [address], [place] * TSH Rfx On Abnormal To Free T4 (10/26/2024 5:17 AM EDT) TSH 3.410 0.270 - 4.200 uIU/mL 10/26/2024 5:48 AM EDT [facility] Blood Line / Unknown 10/26/2024 5: 17 AM EDT 10/26/2024 5:19 AM EDT Los Mazariegos MD LAB BLOOD ORDERABLES Final Result Performing Organization Address City/[facility]/ZIP Co de Phone Number [facility]
[address] [place] [address], [place] * Gold Top - SST (10/26/2024 5:17 AM EDT) Extra Tube Hold for add-ons. 10/26/2024 5:30 AM EDT [facility] Comment:Auto resulted. Blood Line / Unknown 10/26/2024 5: 17 AM EDT 10/26/2024 5:19 AM EDT Los Mazariegos MD LAB BLOOD ORDER ONLY Final Result [facility]
[address] [place] [address], [place] * Green Top (Gel) (10/26/2024 5:17 AM EDT) Extra Tube Hold for add-ons. 10/26/2024 5:30 AM EDT [facility] Comment:Auto resulted. Blood Line / Unknown 10/26/2024 5: 17 AM EDT 10/26/2024 5:19 AM EDT us Los Mazariegos MD LAB BLOOD ORDER ONLY Final Result [facility]
[address] [facility] [address] [place] [address], [place] * CBC Auto Differential (10/26/2024 5:17 AM EDT) WBC 6.81 3.40 - 10.80 10*3/mm3 10/26/2024 5:22 AM EDT [facility] RBC 4.50 3.77 - 5.28 10*6/mm3 10/26/2024 5:22 AM EDT [facility] Hemoglobin 13.7 12.0 - 15.9 g/dL 10/26/2024 5:22 AM EDT [facility] Hematocrit 41.7 34.0 - 46.6 % 10/26/2024 5:22 AM EDT [facility] MCV 92.7 79.0 - 97.0 fL 10/26/2024 5:22 AM EDT [facility] MCH 30.4 26.6 - 33.0 pg 10/26/2024 5:22 AM EDT [facility] MCHC 32.9 31.5 - 35.7 g/dL 10/26/2024 5:22 AM EDT [facility] RDW 13.6 12.3 - 15.4 % 10/26/2024 5:22 AM EDT [facility] RDW-SD 46.1 37.0 - 54.0 fl 10/26/2024 5:22 AM EDT [facility] MPV 10.1 6.0 - 12.0 fL 10/26/2024 5:22 AM EDT [facility] Platelets 182 140 - 450 10*3/mm3 10/26/2024 5:22 AM EDT [facility] Neutrophil % 60.0 42.7 - 76.0 % 10/26/2024 5:22 AM EDT [facility] Lymphocyte % 28.6 19.6 - 45.3 % 10/26/2024 5:22 AM EDT [facility] Monocyte % 7.6 5.0 - 12.0 % 10/26/2024 5:22 AM EDT [facility] Eosinophil % 3.4 0.3 - 6.2 % 10/26/2024 5:22 AM EDT [facility] Basophil % 0.3 0.0 - 1.5 % 10/26/2024 5:22 AM EDT [facility] Immature Grans % 0.1 0.0 - 0.5 % 10/26/2024 5:22 AM EDT [facility] Neutrophils, Absolute 4.08 1.70 - 7.00 10*3/mm3 10/26/2024 5:22 AM EDT [facility] Lymphocytes, Absolute 1.95 0.70 - 3.10 10*3/mm3 10/26/2024 5:22 AM EDT [facility] Monocytes, Absolute 0.52 0.10 - 0.90 10*3/mm3 10/26/2024 5:22 AM EDT [facility] Eosinophils, Absolute 0.23 0.00 - 0.40 10*3/mm3 10/26/2024 5:22 AM EDT [facility] Basophils, Absolute 0.02 0.00 - 0.20 10*3/mm3 10/26/2024 5:22 AM EDT [facility] Immature Grans, Absolute 0.01 0.00 - 0.05 10*3/mm3 10/26/2024 5:22 AM EDT [facility] Blood Line / Unknown 10/26/2024 5: 17 AM EDT 10/26/2024 5:19 AM EDT us Los Mazariegos MD LAB BLOOD ORDERABLES Final Result [facility]
[address] [facility] [address] [place] [address], [place] * Lavender Top (10/26/2024 5:17 AM EDT) Extra Tube hold for add-on 10/26/2024 5:30 AM EDT [facility] Comment:Auto resulted Blood Line / Unknown 10/26/2024 5: 17 AM EDT 10/26/2024 5:19 AM EDT Los Mazariegos MD LAB BLOOD ORDER ONLY Final Result [facility]
[address] [facility] [address] [place] [address], [place] * Light Blue Top (10/26/2024 5:17 AM EDT) Extra Tube Hold for add-ons. 10/26/2024 5:30 AM EDT [facility] Comment:Auto resulted Blood Line / Unknown 10/26/2024 5: 17 AM EDT 10/26/2024 5:19 AM EDT Los Mazariegos MD LAB BLOOD ORDER ONLY Final Result Performing Organization Address City/[facility]/ZIP Co de Phone Number [facility]
[address] [place] [address], [place] * High Sensitivity Troponin T (10/26/2024 5:17 AM EDT) HS Troponin T <6 <14 ng/L 10/26/2024 5:39 AM EDT [facility] Blood Line / Unknown 10/26/2024 5: 17 AM EDT 10/26/2024 5:19 AM EDT Los Mazariegos MD LAB BLOOD ORDERABLES Final Result Performing Organization Address City/[facility]/ZIP Co de Phone Number [facility]
[address] [facility] [address] [place] [address], [place] * BNP (10/26/2024 5:17 AM EDT) proBNP 62.7 0.0 - 900.0 pg/mL 10/26/2024 5:40 AM EDT [facility] Blood Line / Unknown 10/26/2024 5: 17 AM EDT 10/26/2024 5:19 AM EDT Narrative [facility] - 10/26/2024 5:40 AM EDT [...] Mazariegos MD LAB BLOOD ORDERABLES Final Result [facility]
[address] [place] [address], [place] * Magnesium (10/26/2024 5:17 AM EDT) Magnesium 2.2 1.6 - 2.4 mg/dL 10/26/2024 5:43 AM EDT [facility] Blood Line / Unknown 10/26/2024 5: 17 AM EDT 10/26/2024 5:19 AM EDT Los Mazariegos MD LAB BLOOD ORDERABLES Final Result [facility]
[address] [facility] [address] [place] [address], [place] * Lipase (10/26/2024 5:17 AM EDT) Lipase 42 13 - 60 U/L 10/26/2024 5:42 AM EDT [facility] Blood Line / Unknown 10/26/2024 5: 17 AM EDT 10/26/2024 5:19 AM EDT us Los Mazariegos MD LAB BLOOD ORDERABLES Final Result [facility]
[address] [facility] [address] [place] [address], [place] * (ABNORMAL) Comprehensive Metabolic Panel (10/26/2024 5:17 AM EDT) Glucose 122(H) 65 - 99 mg/dL 10/26/2024 5:43 AM EDT [facility] BUN 13.6 8.0 - 23.0 mg/dL 10/26/2024 5:43 AM EDT [facility] Creatinine 0.59 0.57 - 1.00 mg/dL 10/26/2024 5:43 AM EDT [facility] Sodium 137 136 - 145 mmol/L 10/26/2024 5:43 AM EDT [facility] Potassium 4.0 3.5 - 5.2 mmol/L 10/26/2024 5:43 AM EDT [facility] Chloride 102 98 - 107 mmol/L 10/26/2024 5:43 AM EDT [facility] CO2 24.6 22.0 - 29.0 mmol/L 10/26/2024 5:43 AM EDT [facility] Calcium 9.6 8.6 - 10.5 mg/dL 10/26/2024 5:43 AM EDT [facility] Total Protein 7.1 6.0 - 8.5 g/dL 10/26/2024 5:43 AM EDT [facility] Albumin 4.8 3.5 - 5.2 g/dL 10/26/2024 5:43 AM EDT [facility] ALT (SGPT) 15 1 - 33 U/L 10/26/2024 5:43 AM EDT [facility] AST (SGOT) 22 1 - 32 U/L 10/26/2024 5:43 AM EDT [facility] Alkaline Phosphatase 81 39 - 117 U/L 10/26/2024 5:43 AM EDT [facility] Total Bilirubin 0.2 0.0 - 1.2 mg/dL 10/26/2024 5:43 AM EDT [facility] Globulin 2.3 gm/dL 10/26/2024 5:43 AM EDT [facility] A/G Ratio 2.1 g/dL 10/26/2024 5:43 AM EDT [facility] BUN/Creatinine Ratio 23.1 7.0 - 25.0 10/26/2024 5:43 AM EDT [facility] Anion Gap 10.4 5.0 - 15.0 mmol/L 10/26/2024 5:43 AM EDT [facility] eGFR 99.5 >60.0 mL/min/1.7 3 10/26/2024 5:43 AM EDT [facility] Blood Line / Unknown 10/26/2024 5: 17 AM EDT 10/26/2024 5:19 AM EDT [facility] - 10/26/2024 5:43 AM EDT GFR [...] Mazariegos MD LAB BLOOD ORDERABLES Final Result [facility]
[address] [address], * Mammo Screening Digital Tomosynthesis Bilateral With [...] Recently Relevant to Health Maintenance [place] [address] MEDICARE A & B [employer] SUP Care Teams Gill Box Fixer Relationship Specialty Start Date End Date Kia Ha MD [address] [address] PCP - General 02/13/15
--- OUTSIDE RECORDS SUMMARY | 2025-01-26 10:23 | XMS_ITS | Encounter Summary ---
Author Organization [facility] Address [address] [place] [address] Care Team Providers Care Land Classifier Name Role Phone Kia Ha MD Primary Care Provider [phone] Encounter Details Date Type Department Care Team [...] Description 02/23/2025 1:00 PM EDT Appointment [facility] [address] [place] [address] 01/09/2026 10:30 AM EDT Office Visit [facility] C[facility] [address] [place] [phone] Gianni Delgado III, MD [address] [facility] [address] [place] [phone] documented as of this encounter Visit Diagnoses Not on filedocumented in this encounter Care Teams Land Classifier Relationship Specialty Start Date End Date Kia Ha MD [address] [facility] [address] [place] [address] PCP - General 02/13/15 documented as of this encounter
--- OUTSIDE RECORDS SUMMARY | 2025-01-26 10:23 | XMS_ITS | Encounter Summary ---
Author Organization [facility] Address [address] [place] [address] Care Team Providers Care Directional Bore Operator Name Role Phone Kia Ha MD Primary Care Provider [phone] Encounter Details Date Type Department Care Team (Late st Contact Info) Description 11/22/2024 Results Follow-Up [facility] [address] [facility] [address] [place] [address] Jesus Nesbitt APRN 17[address] [facility] [address] [place] [id number] Social History Tobacco Use Types Packs/Day Years [...] Info) Description 02/23/2025 1:00 PM EDT Appointment [facility] [address] [place] [address] 01/09/2026 10:30 AM EDT Office Visit [facility] [address] [facility] [address] [place] [address] Gianni Delgado III, MD [address] [place] [address] [facility] [address] [place] [phone] documented as of this encounter Visit Diagnoses Not on filedocumented in this encounter Care Teams Directional Bore Operator Relationship Specialty Start Date End Date Kia Ha MD [address] [facility] [address] [place], [place] [phone] PCP - General 02/13/15 documented as of this encounter
--- OUTSIDE RECORDS SUMMARY | 2025-01-26 10:23 | XMS_ITS | Encounter Summary ---
Author Organization [facility] Address [address] [place] [address] Care Team Providers Care Sql Server Consultant Name Role Phone Kia Ha MD Primary Care Provider [phone] Encounter Details Date Type Department Care Team (Late st Contact Info) Description 01/17/2025 Results Follow-Up [facility] C[facility] [address] [facility] [address] [place] [address] Gianni Delgado III, MD [address] [facility] [address] [place] [address] Social History Tobacco Use Types Packs/Day Years [...] Info) Description 02/23/2025 1:00 PM EDT Appointment [facility] [address] [place] [address] 01/09/2026 10:30 AM EDT Office Visit [facility] [address] [facility] [address] [place] [phone] Gianni Delgado III, MD [address] [place] [address] [facility] 400 [place] [address] documented as of this encounter Visit Diagnoses Not on filedocumented in this encounter Care Teams Sql Server Consultant Relationship Specialty Start Date End Date Kia Ha MD [address] [facility] [address] [place] [address] PCP - General 02/13/15 documented as of this encounter
--- OUTSIDE RECORDS SUMMARY | 2025-01-26 10:23 | XMS_ITS | Encounter Summary ---
Author Organization [facility] Address [address] [place] [address] Care Team Providers Care Basket Machine Operator Name Role Phone Kia Ha MD Primary Care Provider Reason for Referral * Consultation (Routine) - Pending Review Specialty Diagnoses / Procedures Referred By Contact Referred To Contact Gastroenterology Diagnoses Dyspepsia Procedures [place] OFFICE/OUTPATIENT NEW MODERATE MDM 45 MINUTES Gainni Delgado III, MD [address] [place] [address] Phone: tel: fax: Roe Dunham MD [address] [address] [place] [address] Phone: tel: fax: Referral ID Status Reason Start Date Expiration Date Visits Requested Visits Authorized Pending Review Specialty Services Required 01/10/2025 04/11/2026 1 1 * Cardiac Stress Testing (Routine) - Closed Specialty Diagnoses / Procedures Referred By Contac t Referred To Contact Diagnoses Precordial pain Procedures Treadmill Stress Test Gianni Delgado III, MD [address] [place] [address] Phone: tel: fax: Referral ID Status Reason Start Date Expiration Date Visits Re quested Visits Authorized Closed 01/10/2025 04/11/2026 1 1 Encounter Details Date Type Department Care Team (Late st Contact Info) Description 01/10/2025 Telephone [facility] [address] [place] [address] Gianni Delgado III, MD [address] [place] [address] Social History Tobacco Use Types Packs/Day Years [...] pain. Consult GI, dyspepsia. Message sent via [employer]. documented in this encounter Plan of Treatment Upcoming Encounters Date Type Department Care Team (Late st Contact Info) Description 02/23/2025 1:00 PM EDT Appointment [facility] [address] [place] [address] 01/09/2026 10:30 AM EDT Office Visit [facility] [address] [place] [address] Gianni Delgado III, MD [address] [place] [address] Scheduled Referrals Name Type Priority Associated Diagnoses [...] recovery. Arrhythmias during recovery: occasional PAC's. Test Linen Controller ECG [place] Gianni Delgado III, MD CV STRESS ORDERABLES Final Result documented in this encounter Visit Diagnoses Diagnosis Precordial pain- Primary Dyspepsia Dyspepsia and other specified disorders of function of stomach Precordial pain documented in this encounter Care Teams Basket Machine Operator Relationship Specialty Start Date End Date Kia Ha MD [address] [place] [address] PCP - General 02/13/15 documented as of this encounter
--- OUTSIDE RECORDS SUMMARY | 2025-01-26 10:23 | XMS_ITS | Encounter Summary ---
Author Organization [facility] Address [address] [place] [address] Care Team Providers Care Jewelry Internship Name Role Phone Kia Ha MD Primary Care Provider [phone] Reason for Visit * Auth/Cert Specialty Diagnoses / Procedures Referred By Pili t Referred To Contact Procedures OPEN REDUCTION INTERNAL FIXATION HUMERUS PROXIMAL Referral ID Status Reason Start Date Expiration Date Visits Re quested Visits Authorized [id number] Encounter Details Date Type Department Care Team (Late st Contact Info) Description 08/15/2024 Hospital Encounter [facility] OR [address] [place] [address] Davey Moran Jr., MD [address] [facility] [address] [place] [address] Social History Tobacco Use Types [...] 5:05 AM EDT Margarito Walters RN * [place] Suicide Severity Rating Scale (Screener/Recent Self-Report) Question [...] 02/23/2025 1:00 PM EDT Appointment [facility] [address] [place] [address] 01/09/2026 10:30 AM EDT Office Visit [facility] [address] [facility] [address] [place] [address] Gianni Delgado III, MD [address] [facility] [address] [place] [address] documented as of this encounter Visit Diagnoses Not on filedocumented in this encounter Care Teams Jewelry Internship Relationship Specialty Start Date End Date Kia Ha MD [address] [facility] [address] [place] [address] PCP - General 02/13/15 documented as of this encounter
--- OUTSIDE RECORDS SUMMARY | 2025-01-26 10:23 | XMS_ITS | Encounter Summary ---
Author Organization [facility] Address [address] [place] [address] Care Team Providers Care Cap Maker Name Role Phone Kia Ha MD Primary Care Provider [phone] Encounter Details Date Type Department Care Team [...] Info) Description 02/23/2025 1:00 PM EDT Appointment [facility] [address] [place] [address] 01/09/2026 10:30 AM EDT Office Visit [facility] MEDICAL [facility] CARDIOLOGY [facility] [address] [place] [address] Gianni Delgado III, MD [address] [place] [address] documented as of this encounter Visit Diagnoses Not on filedocumented in this encounter Care Teams Cap Maker Relationship Specialty Start Date End Date Kia Ha MD [address] [facility] [address] [place] [address] PCP - General 02/13/15 documented as of this encounter
--- OUTSIDE RECORDS SUMMARY | 2025-01-26 10:23 | XMS_ITS | Encounter Summary ---
Author Organization [facility] Address [address] [place] [address] Care Team Providers Care Contracting Engineer Name Role Phone Kia Ha MD Primary Care Provider [phone] Encounter Details Date Type Department Care Team [...] Info) Description 02/23/2025 1:00 PM EDT Appointment [facility] [address] [place] [address] 01/09/2026 10:30 AM EDT Office Visit [facility] MEDICAL [facility] [address] [place] [address] Gianni Delgado III, MD [address] [place] [address] documented as of this encounter Visit Diagnoses Not on filedocumented in this encounter Care Teams Contracting Engineer Relationship Specialty Start Date End Date Kia Ha MD [address] [facility] [address] [place] [address] PCP - General 02/13/15 documented as of this encounter
--- NOTE | 2025-01-26 10:30 | US_ITS ---
FINAL REPORT TECHNIQUE: Sonographic images of the right upper quadrant were obtained. CLINICAL HISTORY: Epigastric/right upper quadrant pain COMPARISON: None FINDINGS: PANCREAS: Unremarkable. LIVER: Homogeneous. No focal hepatic lesion. No intrahepatic biliary ductal dilatation. GALLBLADDER: No gallstones. No gallbladder wall thickening or pericholecystic fluid. COMMON DUCT: 2 mm. Normal for age. RIGHT KIDNEY: The right kidney measures 12.6 cm. There is no hydronephrosis, mass, or stone. FREE FLUID: None. IMPRESSION: Unremarkable ultrasound of the right upper quadrant. Reviewed, Interpreted and Dictated by Gin Fuchs MD Transcribed by Dary Green Authenticated and [facility]
== END 2025-01-26 23:59 | disposition home or self-care (01) ==
LOC: RAD 10:21
PROVIDERS: PCP Nurse Practitioner Family; Visit Provider Nurse Practitioner Family
DX: R10.13 Epigastric pain (principal); R10.11 Right upper quadrant pain
CPT/HCPCS: 76705

== ENCOUNTER 2025-02-21 06:37 | Day surgery (SDC) | payer MEDICARE, OTHER, SELFPAY ==
[2025-02-14 10:30] VITALS: BMI 25.1
--- NOTE | 2025-02-18 12:47 | EXP.HP ---
History of Present Illness *Admission Date: 02/21/25 *History of present illness: Mrs. Reddy is a 69-year-old female who is here for diagnostic EGD and follow-up screening/surveillance colonoscopy. The patient has had throat clearing with bloating, belching, epigastric pain, cough and dysphagia. She did have a colonoscopy with me in February 2021 and had 8 polyps (tubular adenomas x 5 and hyperplastic polyps x 3). At that time she did have some left-sided diverticulosis and grade 2 internal hemorrhoids which were banded x 2. She was given 3-year surveillance interval. The patient reports no abdominal pain, weight loss, change in her bowel habits or rectal bleeding. She reports no family history of colon cancer but her father had a larger and more advanced adenomatous polyp removed. The examination is deemed medically necessary for screening/surveillance colonoscopy. The patient has been seen, interviewed and examined prior to the procedure by both myself and the anesthesia provider. [facility] Disclaimer: The information contained in this section may have been updated after the patient was seen, as this information can be updated by other users. Medical History Screening for malignant neoplasm of colon PAC (premature atrial contraction) Left humeral fracture Heartburn GERD (gastroesophageal reflux disease) Esophageal dysmotilities Hyperlipidemia High blood pressure Colon polyps Surgical History History of dilation and curettage History of tubal ligation Family History Mother Pancreatic cancer Social History (Updated 02/21/25 @ 07:38 by Harmony Stiles CRNA) Smoking Status: Never smoker alcohol intake: former substance use type: unknown current occupational status: retired Travel in the last 8 weeks?: None household members: spouse caffeine: Yes Have you lived/traveled outside US in past 30 days?: No Contact w/someone who lives/traveled outside US past 30 days?: No Exposure to someone with infectious disease in past 14 days?: No Do you have a fever (greater than 100.4 F or 38 C)?: No Have you tested positive for COVID-19?: No Exposed to someone with COVID-19 in past 14 days?: No Do you have a sore throat?: No Do you have a cough?: No Do you have any weakness?: No Are you experiencing any nausea/vomitting?: No Do you have any diarrhea?: No Are you experiencing any unusual bleeding?: No Do you have any muscle aches/pain?: No Do you have any abdominal pain?: No Are you experiencing loss of taste or smell?: No Other Medical History Have you received the Pneumonia Vaccine: Yes Review of Systems Review of Systems Review of systems (narrative): Negative *Cardiovascular Comments: Negative *Gastrointestinal Comments: Negative *Genitourinary Comments: Negative *Musculoskeletal Comments: Negative *Neurologic Comments: Negative Meds Home Medications and Allergies Home Medications ?Medication ?Instructions ?Recorded ?Confirmed ?Type amlodipine 5 mg tablet 5 mg PO DAILY 11/27/24 02/21/25 History cholecalciferol (vitamin D3) 50 50 mcg PO DAILY 11/27/24 02/21/25 History mcg (2,000 unit) capsule docusate sodium 100 mg capsule 200 mg PO DAILY 11/27/24 02/21/25 History (Colace) magnesium glycinate 200 mg PO DAILY 11/27/24 02/21/25 History omega-3 fatty acids-fish oil 360 1 cap PO DAILY 11/27/24 02/21/25 History mg-1,200 mg capsule polyethylene glycol 3350 17 17 g PO DAILY PRN Stomach Upset 11/27/24 02/21/25 History gram/dose oral powder (Miralax) rosuvastatin 40 mg tablet 40 mg PO DAILY 11/27/24 02/21/25 History trazodone 50 mg tablet 50 mg PO DAILY 11/27/24 02/21/25 History lwecq-q-ucycxhgfvtlve 600 unit 600 unit PO DAILY PRN Stomach Upset 01/18/25 02/21/25 History capsule (Anti-Gas) aluminum-mag hydroxide-simethicone 5 ml PO QID PRN Stomach Upset 01/18/25 02/21/25 History 400 mg-400 mg-40 mg/5 mL oral susp calcium carbonate (Tums) 200 mg PO BID 01/18/25 02/21/25 History omeprazole 20 mg capsule,delayed 20 mg PO DAILY 01/18/25 02/21/25 History release cyclosporine 0.05 % eye drops in a 1 drp Eye-Both TID 02/07/25 02/21/25 History dropperette metoprolol succinate 25 mg 25 mg PO DAILY 02/07/25 02/21/25 History tablet,extended release 24 hr sodium,potassium,mag sulfates 17.5 See Rx Instructions PO .COMPLEX 02/08/25 02/21/25 Rx gram-3.13 gram-1.6 gram oral soln #354 mL (Suprep Bowel Prep Kit) New Prescriptions to Start Prescriptions: Allergies Allergy/AdvReac Type Severity Reaction Status Date / Time imipramine Allergy Rash Verified 02/21/25 07:09 Sulfa (Sulfonamide Allergy Rash Verified 02/21/25 07:09 Antibiotics) Exam *Routine HEENT Exam Head: Present normocephalic Eye: Present EOMI and PERRL ENT: Present mucous membranes moist *Routine Neck Exam Neck: Present supple *Routine Respiratory Exam Respiratory: Present CTA bilaterally *Routine Cardiovascular Exam Cardiovascular: Present RRR *Routine Abdominal Exam Abdominal: Present soft and normoactive bowel sounds; Absent tenderness *Routine Rectal Exam Rectal:: deferred *Routine Genitalia Exam Genitalia:: deferred *Routine Extremities Exam Extremities: Absent cyanosis, clubbing or edema *Routine Skin Exam Skin: Present warm; Absent rash *Routine Neurological Exam Neurological: Present alert and oriented X3 Assessment and Plan *Assessment and plan (1) Personal history of adenomatous and serrated colon polyps: Status: Acute Category: Medical Code(s): Z86.0101 - Personal history of adenomatous and serrated colon polyps (2) Family history of adenomatous polyp of colon: Status: Acute Category: Social Hx Code(s): Z83.710 - Family history of adenomatous and serrated polyps (3) Screening for malignant neoplasm of colon: Status: Acute Category: Medical Code(s): Z12.11 - Encounter for screening for malignant neoplasm of colon (4) Epigastric pain: Status: Acute Category: Medical Code(s): R10.13 - Epigastric pain (5) Dysphagia: Status: Acute Category: Medical Code(s): R13.10 - Dysphagia, unspecified (6) Chronic cough: Status: Acute Category: Medical Code(s): R05.3 - Chronic cough (7) Hoarseness: Status: Acute Category: Medical Code(s): R49.0 - Dysphonia (8) Throat clearing: Status: Acute Category: Medical Code(s): R09.89 - Other specified symptoms and signs involving the circulatory and respiratory systems Plan A/P: 1. Dyspepsia with epigastric abdominal pain, dysphagia, chronic cough, hoarseness and throat clearing for upper endoscopy and personal history of adenomatous colon polyps for colonoscopy is the preprocedural diagnosis. The patient will be anesthetized/sedated using MAC sedation. The patient has been seen and examined. Cardiac and lung assessment prior to the examination is stable. Proceed with planned EGD and screening/surveillance colonoscopy.
--- NOTE | 2025-02-21 07:01 | HMH.PROCNOTE ---
[facility] Procedure Note Date: 02/21/25 Time: 08: Procedure Note:: Colonoscopy Procedure Report: Colonoscopy with cold snare polypectomy Endoscopist: Quinton Berkowitz II, MD Referring physician: Kia Ha MD, [address], [place] [address] Date of Procedure: February 21, 2025 Equipment: Olympus [id number] adult colonoscope Sedation: MAC sedation Indication: Mrs. Reddy is a 69-year-old female who is here for diagnostic EGD and follow-up screening/surveillance colonoscopy. The patient has had throat clearing with bloating, belching, epigastric pain, cough and dysphagia. The patient does report retrosternal pain and discomfort with a lot of belching and some bloating. The patient did have a cardiac catheterization which was normal. She has been on omeprazole. She did report palpitations from the Pepcid and diarrhea from lansoprazole. She reports the upper abdominal pain like a band around the abdomen. Her right upper quadrant abdominal ultrasound was unremarkable. She reports no nausea. She has had some weight loss. She has been using low FODMAP diet and Iberogast over the last 5 weeks with some improvement. She did have a colonoscopy with ga in February 2021 and had 8 polyps (tubular adenomas x 5 and hyperplastic polyps x 3). At that time she did have some left-sided diverticulosis and grade 2 internal hemorrhoids which were banded x 2. She was given 3-year surveillance interval. The patient reports no change in her bowel habits or rectal bleeding. She does use MiraLAX as needed. She reports no family history of colon cancer but her father had a larger and more advanced adenomatous polyp removed. The examination is deemed medically necessary for EGD and screening/surveillance colonoscopy Procedure: Prior to the procedure, a history and physical exam was performed, and patient's medications and allergies were reviewed. The risks, benefits and alternatives of the sedation and procedure were discussed with the patient. All questions were answered and informed consent was obtained. The patient was brought to the procedure room. Patient identification and proposed procedure were verified by the physician and the nurse. The patient was placed in a left lateral decubitus position and the scope was passed under direct vision. Throughout the procedure, the patient's blood pressure, pulse, and oxygen saturations were monitored continuously. The colonoscopy was accomplished without difficulty. The patient tolerated the procedure well. Findings: On digital rectal examination there was normal rectal tone. There were no external hemorrhoids. The colonoscope was introduced through the anal canal to the rectum and advanced to the cecum. The ileocecal valve and appendiceal orifice were identified. The scope was advanced a short distance into the ileum which appeared grossly normal. The scope was then withdrawn into the colon. The cecum, ascending and transverse colon and mucosa were grossly normal. There were scattered diverticuli throughout the descending and sigmoid colon (LEFT colon). There was a single polyp (4 mm) in the sigmoid colon removed via cold snare polypectomy. There was some increased colonic luminal diameter throughout. The rectum itself was normal. Upon retroflexion within the rectum there were grade 2 internal hemorrhoids. The preparation was e good throughout with Marcy Preparation Score of 8 out of 9. The cecal time was 12 minutes. Impression: 1. Diminutive sigmoid colon polyp 2. Left-sided diverticulosis 3. Grade 2 internal hemorrhoids Plan: I will follow-up the polyp histology. There was some increased luminal diameter throughout the colon secondary to chronic gaseous distention. I do feel that she has some colonic dysmotility and excessive colonic fermentation which drives her bile reflux and upper digestive tract symptoms and dyspepsia. I would recommend prucalopride plus Fodzyme. I will check the disaccharidase assay and we will discuss further treatment options.
[2025-02-21 07:15] VITALS: BP 144/94; PULSE 66; RESP 18; TEMP 36.8; O2SAT 98
[2025-02-21] MEDS: LACTATED RINGERS 1000ML 1,000 ML 50 ML IV (07:32)
--- NOTE | 2025-02-21 07:37 | EXP.ANES.CKL ---
[facility] Disclaimer: The information contained in this section may have been updated after the patient was seen, as this information can be updated by other users. Medical History Screening for malignant neoplasm of colon PAC (premature atrial contraction) Left humeral fracture Heartburn GERD (gastroesophageal reflux disease) Esophageal dysmotilities Hyperlipidemia High blood pressure Colon polyps Surgical History History of dilation and curettage History of tubal ligation Family History Mother Pancreatic cancer Social History Smoking Status: Never smoker alcohol intake: former substance use type: unknown current occupational status: retired Travel in the last 8 weeks?: None household members: spouse caffeine: Yes [facility] Anesthesia Checklist Patient Identification Patient Identification: Arm Band and Verbal (Name & ) Structural Data Admitted From: Home Planned Operative Procedure/s: colonscopy Consent for Planned Operative Procedure(s) Verified: Yes Verified Documents: Surgical Consent and History and Physical NPO Status Verified Time NPO: 00:00 Additional verifications Anesthesia Reactions: No Previous Colonoscopy: Yes Airway Assessment Mallampati Score:: Class II Dentition: Good Dentition Neurological Assessment Level of Consciousness: Awake, Alert and Appropriate Hx Seizures: No Anesthesia Plan Anesthesia Risk discussed: Yes Anesthesia Plan: Verified ASA Class: II Anesthesia Type: MAC
--- NOTE | 2025-02-21 07:54 | HMH.PROCNOTE ---
[facility] Procedure Note Date: 02/21/25 Time: 08:07 Procedure Note:: Upper Endoscopy Procedure Report: Esophagogastroduodenoscopy with cold biopsies and TTS balloon dilation Endoscopost: Quinton Berkowitz II, MD Referring Physician: Kia Ha MD, [address], [place] [address] Date of Procedure: February 21, 2025 Equipment: Olympus [id number] standard upper endoscope Sedation: MAC sedation Indications: Mrs. Reddy is a 69-year-old female who is here for diagnostic EGD and follow-up screening/surveillance colonoscopy. The patient has had throat clearing with bloating, belching, epigastric pain, cough and dysphagia. The patient does report retrosternal pain and discomfort with a lot of belching and some bloating. The patient did have a cardiac catheterization which was normal. She has been on omeprazole. She did report palpitations from the Pepcid and diarrhea from lansoprazole. She reports the upper abdominal pain like a band around the abdomen. Her right upper quadrant abdominal ultrasound was unremarkable. She reports no nausea. She has had some weight loss. She has been using low FODMAP diet and Iberogast over the last 5 weeks with some improvement. She did have a colonoscopy with pr in February 2021 and had 8 polyps (tubular adenomas x 5 and hyperplastic polyps x 3). At that time she did have some left-sided diverticulosis and grade 2 internal hemorrhoids which were banded x 2. She was given 3-year surveillance interval. The patient reports no change in her bowel habits or rectal bleeding. She does use MiraLAX as needed. She reports no family history of colon cancer but her father had a larger and more advanced adenomatous polyp removed. The examination is deemed medically necessary for EGD and screening/surveillance colonoscopy. Procedure: Prior to the procedure, a history and physical exam was performed, and patient's medications and allergies were reviewed. The risks, benefits and alternatives of the sedation and procedure were discussed with the patient. All questions were answered and informed consent was obtained. The patient was brought to the procedure room. Patient identification and proposed procedure were verified by the physician and the nurse. The patient was placed in a left lateral decubitus position and the scope was passed under direct vision. Throughout the procedure, the patient's blood pressure, pulse, and oxygen saturations were monitored continuously. The upper GI endoscopy was accomplished without difficulty. The patient tolerated the procedure well. Findings: The scope was passed directly into the upper esophagus and advanced to the third portion of the duodenum. The post bulbar duodenum, ampulla and duodenal bulb were normal with normal mucosa and conniventes. A cold biopsy was taken from the second portion of the duodenum for the disaccharidase assay. The scope was withdrawn through a normal duodenal bulb and pylorus into the stomach. There was mild linear gastropathy of the antrum and into the body and fundus with mild bile reflux. Cold biopsies were taken along the lesser curvature to rule out H. pylori. Upon retroflexion there was no hiatal hernia. There were no ulcerations or erosions. The remainder of the gastric mucosa was normal. The scope was then withdrawn into the esophagus. There was no evidence of reflux esophagitis or Lisa's. There were strong tertiary contractions and evidence of moderate esophageal dysmotility. There were no rings, strictures, webs, Gabbi or inlet patch. There was no corrugation or furling. The entire esophagus was dilated to 60 Tristanian/20 mm with a TTS hydrostatic balloon. There was some resistance at the cricopharyngeus. The remainder of the esophageal mucosa was normal. Impression: 1. Cricopharyngeal spasm status post dilation to 20 mm 2. Nonerosive GERD with moderate esophageal dysmotility 3. Bile reflux with mild linear reactive gastropathy Plan: I will follow-up the biopsies and disaccharidase assay. I do feel that the patient has functional GERD with esophageal spasm/dyskinesia and dysmotility. We will discuss treatment options today. I will proceed with surveillance colonoscopy.
[2025-02-21 08:36] VITALS: BP 102/60; PULSE 52; RESP 16; O2SAT 98
[2025-02-21 08:46] VITALS: BP 109/69; PULSE 67; RESP 18; O2SAT 99
[2025-02-21 08:56] VITALS: BP 132/57; PULSE 61; RESP 16; O2SAT 99
[2025-02-25 12:09] LABS: Interpretation Notes (.); Lactase 10.24 (>/= 14.0); Maltase 192.56 (>/= 110.0); Palatinase 15.7 (>/= 8.5); Reference Notes (.); Sucrase 46.43 (>/= 25.0)
== END 2025-02-21 08:56 | disposition home or self-care (01) ==
PROVIDERS: Visit Provider Internal Medicine Gastroenterology
PROC: 0DJ08ZZ Inspection of Upper Intestinal Tract, Via Natural or Artificial Opening Endoscopic (ICD-10-PCS; CPT 45378; principal; 2025-02-21 08:00)
DX: Z12.11 Encounter for screening for malignant neoplasm of colon (principal); D12.5 Benign neoplasm of sigmoid colon; K57.30 Diverticulosis of large intestine without perforation or abscess without bleeding; K64.1 Second degree hemorrhoids; K21.9 Gastro-esophageal reflux disease without esophagitis; K22.4 Dyskinesia of esophagus; J39.2 Other diseases of pharynx; K31.9 Disease of stomach and duodenum, unspecified; R14.2 Eructation; E78.5 Hyperlipidemia, unspecified; I10 Essential (primary) hypertension; R49.0 Dysphonia; R05.3 Chronic cough; R09.89 Other specified symptoms and signs involving the circulatory and respiratory systems; Z88.8 Allergy status to other drugs, medicaments and biological substances; Z88.2 Allergy status to sulfonamides; Z80.0 Family history of malignant neoplasm of digestive organs; Z86.0101 Personal history of adenomatous and serrated colon polyps; Z83.710 Family history of adenomatous and serrated polyps; Z79.899 Other long term (current) drug therapy
CPT/HCPCS: 43239; 43249; 45385; 82657; 88305; C1726; J2003; J2704; J7120